=== PATIENT | female | born 1930 | race Caucasian/White ===

== ENCOUNTER 2017-02-05 18:17 | Inpatient (IN) | payer OTHER, MEDICARE ==
[~2017-02-05] VITALS: Ht 154.9 cm; Wt 73.8 kg
[2017-02-05 18:19] VITALS: BP 202/85; PULSE 71; RESP 16; TEMP 98.1; O2SAT 98
--- NOTE | 2017-02-05 18:52 | PD ---
HPI Chief Complaint: Neuro Symptoms/ Deficits Time Seen by Provider: 18:39 Travel History International Travel<30 days: No Contact w/Intl Traveler<30days: No Traveled to known affect area: No History of Present Illness HPI 86-year-old female with PMH of hypertension presents to the ED for evaluation of 30 minute episode of right hand weakness approximate 5 PM last night. She states that she was otherwise feeling normally and can identify no other deficit. She states that the episode lasted approximately 30 minutes. She states that she has a little pins and needles feeling in the right hand now but the strength has returned. She was alone when the incident occurred. She denies recent history of fevers, chills, headaches, dizziness, chest pain, palpitations, abdominal pain, shortness of breath, dysuria. She is a former smoker since age 18, quit 5+ years ago. She is followed by Dr. Hugo Pelletier. [facility] Past Medical History Diabetes: Yes Patient Takes Glucophage: Yes GERD: Yes Hypertension: Yes Tetanus Vaccination: > 5 Years Influenza Vaccination: Yes ?: Not Menopausal: Yes Past Surgical History Appendectomy: Yes Social History Alcohol Use: No Tobacco Use: No Substance Use: No Allergies-Medications (Allergen,Severity, Reaction): Coded Allergies: No Known Allergies (Unverified , 02/05/17) Reported Meds & Prescriptions Reported Meds & Active Scripts Active Reported Meloxicam 7.5 Mg Tab 7.5 Mg PO DAILY Tramadol (Tramadol HCl) 50 Mg Tab 50 Mg PO Q12HR PRN Levothyroxine (Levothyroxine Sodium) 50 Mcg Tab 50 Mcg PO DAILY Pravastatin 10 Mg Tab 10 Mg PO DAILY Losartan (Losartan Potassium) 25 Mg Tab 25 Mg PO DAILY Metformin (Metformin HCl) 500 Mg Tab 500 Mg PO DAILY With a meal Lovastatin 10 Mg Tab 10 Mg PO DAILY Ditropan (Oxybutynin Chloride) 5 Mg Tab 5 Mg PO BID Diltiazem ER 12 HR (Diltiazem HCl) 90 Mg Caper 90 Mg PO DAILY Omeprazole 20 Mg Tab 20 Mg PO DAILY Review of Systems Except as stated in HPI: all other systems reviewed are Neg Physical Exam Narrative GENERAL: Well-nourished, well-developed cheerful white female in no acute distress. SKIN: Focused skin assessment warm/dry. Hirsute. Multiple nevi noted HEAD: Normocephalic. Atraumatic. EYES: No scleral icterus. No injection or drainage. PERRLA. EOMI. NECK: Supple, trachea midline. No JVD or lymphadenopathy. CARDIOVASCULAR: Regular rate and rhythm without murmurs, gallops, or rubs. RESPIRATORY: Breath sounds clear and equal bilaterally. No accessory muscle use. GASTROINTESTINAL: Abdomen soft, non-tender, nondistended. Active bowel sounds. MUSCULOSKELETAL: No cyanosis, or edema. NEUROLOGICAL: Awake and alert. Cranial nerves II through XII intact. Motor and sensory grossly within normal limits. Five out of 5 muscle strength in all muscle groups. No pronator drift. 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 Normal speech. BACK: Nontender without obvious deformity. No CVA tenderness. Data Data Last Documented VS Vital Signs Date Time Temp Pulse Resp B/P (MAP) Pulse Ox O2 Delivery O2 Flow Rate FiO2 02/05/17 21:15 81 18 159/77 (104) 95 Room Air 02/05/17 18:19 98.1 Orders Orders Electrocardiogram (02/05/17 18:47) Prothrombin Time / Inr (Pt) (02/05/17 18:47) Act Partial Throm Time (Ptt) (02/05/17 18:47) Complete Blood Count With Diff (02/05/17 18:47) Comprehensive Metabolic Panel (02/05/17 18:47) Creatine Kinase (Cpk) (02/05/17 18:47) Troponin I (02/05/17 18:47) Urinalysis - C+S If Indicated (02/05/17 18:47) Ct Brain W/O Iv Contrast(Rout) (02/05/17 18:47) Chest, Single Ap (02/05/17 18:47) Ecg Monitoring (02/05/17 18:47) Iv Access Insert/Monitor (02/05/17 18:47) Oximetry (02/05/17 18:47) Sodium Chloride 0.9% Flush (Ns Flush) (02/05/17 19:00) Electrocardiogram (02/05/17 ) Labs Laboratory Tests Test 02/05/17 18:40 02/05/17 19:58 White Blood Count 9.3 TH/MM3 Red Blood Count 5.10 MIL/MM3 Hemoglobin 14.6 GM/DL Hematocrit 43.7 % Mean Corpuscular Volume 85.6 FL Mean Corpuscular Hemoglobin 28.7 PG Mean Corpuscular Hemoglobin Concent 33.5 % Red Cell Distribution Width 13.9 % Platelet Count 222 TH/MM3 Mean Platelet Volume 8.3 FL Neutrophils (%) (Auto) 57.7 % Lymphocytes (%) (Auto) 31.7 % Monocytes (%) (Auto) 6.6 % Eosinophils (%) (Auto) 3.1 % Basophils (%) (Auto) 0.9 % Neutrophils # (Auto) 5.4 TH/MM3 Lymphocytes # (Auto) 2.9 TH/MM3 Monocytes # (Auto) 0.6 TH/MM3 Eosinophils # (Auto) 0.3 TH/MM3 Basophils # (Auto) 0.1 TH/MM3 CBC Comment DIFF FINAL Differential Comment Prothrombin Time 10.1 SEC Prothromb Time International Ratio 0.9 RATIO Activated Partial Thromboplast Time 24.6 SEC Blood Urea Nitrogen 24 MG/DL Creatinine 1.30 MG/DL Random Glucose 114 MG/DL Total Protein 7.5 GM/DL Albumin 3.6 GM/DL Calcium Level 9.0 MG/DL Alkaline Phosphatase 59 U/L Aspartate Amino Transf (AST/SGOT) 20 U/L Alanine Aminotransferase (ALT/SGPT) 20 U/L Total Bilirubin 0.5 MG/DL Sodium Level 137 MEQ/L Potassium Level 4.4 MEQ/L Chloride Level 103 MEQ/L Carbon Dioxide Level 25.2 MEQ/L Anion Gap 9 MEQ/L Estimat Glomerular Filtration Rate 39 ML/MIN Total Creatine Kinase 119 U/L Troponin I 0.05 NG/ML MDM Medical Decision Making Medical Screen Exam Complete: Yes Emergency Medical Condition: Yes Differential Diagnosis TIA versus CVA versus electrolyte abnormality versus UTI versus other Narrative Course 86-year-old female with PMH of hypertension presents to the ED for evaluation of 30 minute episode of right hand weakness approximate 5 PM last night. She states that she was otherwise feeling normally and can identify no other deficit. She endorses pins and needles feeling in the right hand now but the strength has returned. She was alone when the incident occurred. She is followed by Dr. Hugo Pelletier. Vitals reviewed. BP 200/76 on presentation. Physical exam reveals a pleasant white female in no acute distress. No focal neurologic deficits noted. No pronator drift noted. Equal strength in the bilateral upper extremities. Exam is otherwise unremarkable. The patient states that she took her blood pressure medications this morning. EKG: Rate 70, sinus rhythm. MD interval 153, QRS 98, QTC 419. Left axis deviation. No acute ST changes. Reviewed by Dr. Fitch. CXR: No acute disease per radiology read. Troponin: Negative 1 CT brain: No acute findings. Old lacunar infarcts per radiology read. No acute abnormalities of the CBC or coags. BUN 24, creatinine 1.30 UA pending On recheck BP 189/72. I discussed the results of the workup with the patient. I suspect she's had a TIA and will need a workup. She is agreeable to admission. I spoke with Dr. Hollingsworth who agrees to accept the patient to the medicine service. Please see medicine notes for disposition. Jamia Ruiz Feb 05, 2017 18:52
[2017-02-05 19:00] VITALS: BP 200/76; PULSE 70; RESP 18; O2SAT 93
[2017-02-05] MEDS ORDERED: SODIUM CHLORIDE 0.9% FLUSH 10 ML FLUSH IVF PRN (19:00)
[2017-02-05 19:06] LABS: AUTOMATED NEUTROPHIL # 5.4 TH/MM3 (1.8-7.7); BASOPHIL # 0.1 TH/MM3 (0-0.2); BASOPHIL % 0.9 % (0.0-2.0); EOSINOPHIL # 0.3 TH/MM3 (0-0.4); EOSINOPHIL % 3.1 % (0.0-4.0); HEMATOCRIT 43.7 % (35.0-46.0); HEMO FLAGS DIFF FINAL; LYMPH % 31.7 % (9.0-44.0); LYMPHOCYTE # 2.9 TH/MM3 (1.0-4.8); MEAN CELL VOLUME 85.6 FL (80.0-100.0); MEAN CORPUSCULAR HEMOGLOBIN 28.7 PG (27.0-34.0); MEAN CORPUSCULAR HGB CONC 33.5 % (32.0-36.0); MONO % 6.6 % (0.0-8.0); NEUT % 57.7 % (16.0-70.0); PLATELET COUNT 222 TH/MM3 (150-450); RED CELL DISTRIBUTION WIDTH 13.9 % (11.6-17.2); WHITE BLOOD COUNT 9.3 TH/MM3 (4.0-11.0)
[2017-02-05] MEDS ORDERED: OMEP20TA93 PO (19:07)
[2017-02-05] MEDS ORDERED: LEVO50TA4 PO (19:07)
[2017-02-05] MEDS ORDERED: MELO7.5T27 PO (19:07)
[2017-02-05] MEDS ORDERED: LOSA25TA PO (19:07)
[2017-02-05] MEDS ORDERED: LOVA10TA PO (19:07)
[2017-02-05] MEDS ORDERED: PRAV10TA PO (19:07)
[2017-02-05] MEDS ORDERED: DILT90CA PO (19:07)
[2017-02-05] MEDS ORDERED: OXYB5TAB8 PO (19:07)
[2017-02-05] MEDS ORDERED: TRAM50TA PO (19:07)
[2017-02-05] MEDS ORDERED: METF500T PO (19:07)
[2017-02-05 19:08] VITALS: RESP 20; O2SAT 96
[2017-02-05 19:26] LABS: APTT (PATIENT) 24.6 SEC (24.3-30.1); INTERNATIONAL NORMALIZED RATIO 0.9 RATIO; PROTHROMBIN TIME - PATIENT 10.1 SEC (9.8-11.6)
--- NOTE | 2017-02-05 19:27 | RADRPT ---
EXAM DATE/TIME: 02/05/2017 18:57 [facility] COMPARISON: No previous studies available for comparison. INDICATIONS : Syncope. MEDICAL HISTORY : Hypertension. Gastroesophageal reflux disease. Diabetes mellitus type II. SURGICAL HISTORY : Appendectomy. ENCOUNTER: Initial ACUITY: 3 days PAIN SCORE: 0/10 LOCATION: Bilateral chest FINDINGS: A single view of the chest demonstrates the lungs to be symmetrically aerated without evidence of mas s, infiltrate or effusion. No evidence of pneumothorax. The cardiomediastinal contours are unremark able. Osseous structures are intact. CONCLUSION: The lungs are clear. Cornelio Messer MD on February 05, 2017 at 19:25 Board Certified Radiologist. This report was verified electronically.
[2017-02-05 19:30] VITALS: BP 195/81; PULSE 70; RESP 19; O2SAT 95
[2017-02-05 19:36] LABS: ALT (GPT) 20 U/L (10-53)
--- NOTE | 2017-02-05 19:38 | RADRPT ---
EXAM DATE/TIME: 02/05/2017 19:11 [facility] COMPARISON: No previous studies available for comparison. INDICATIONS : Altered mental status. RADIATION DOSE: 45.83 CTDIvol (mGy) MEDICAL HISTORY : Hypertension. Diabetes. SURGICAL HISTORY : None. ENCOUNTER: Initial ACUITY: 1 day PAIN SCALE: 0/10 LOCATION: cranial TECHNIQUE: Multiple contiguous axial images were obtained of the head. Using automated exposure control and adj ustment of the mA and/or kV according to patient size, radiation dose was kept as low as reasonably a chievable to obtain optimal diagnostic quality images. DICOM format image data is available electro nically for review and comparison. FINDINGS: CEREBRUM: Small hygromatous fluid collections in the supratentorial brain bilaterally. Lacunar infarct in the left thalamus and left putamen. There is otherwise good powell-white matter differentiation. No evide nce of mass, midline shift, or acute hemorrhage. The ventricles are normal in size. POSTERIOR FOSSA: The cerebellum and brainstem are intact. The 4th ventricle is midline. The cerebellopontine angle i s unremarkable. EXTRACRANIAL: The visualized portion of the orbits is intact. SKULL: The calvaria is intact. No evidence of skull fracture. CONCLUSION: 1. No acute findings. 2. 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 Cornelio Messer MD on February 05, 2017 at 19:35 Board Certified Radiologist. This report was verified electronically.
[2017-02-05 21:15] VITALS: BP 159/77; PULSE 81; RESP 18; O2SAT 95
[2017-02-05 21:30] VITALS: PULSE 69
[2017-02-05 21:35] LABS: ALKALINE PHOSPHATASE 59 U/L (45-117); ANION GAP 9 MEQ/L (5-15); AST (GOT) 20 U/L (15-37); BICARBONATE 25.2 MEQ/L (21.0-32.0); BLOOD UREA NITROGEN 24 MG/DL (7-18); CHLORIDE 103 MEQ/L (98-107); CREATINE KINASE 119 U/L (26-192); GLOMERULAR FILTRATION RATE 39 ML/MIN (>89); POTASSIUM 4.4 MEQ/L (3.5-5.1); SODIUM (NA) 137 MEQ/L (136-145); TOTAL BILIRUBIN ADULT 0.5 MG/DL (0.2-1.0)
[2017-02-05 23:07] LABS: BACTERIA, URINE FEW /hpf; BLOOD, URINE NEG (NEG); GLUCOSE,URINE NEG (NEG); KETONE, URINE NEG (NEG); MUCUS URINE FEW /lpf (OCC); NITRITE,URINE POS (NEG); PH, URINE 5.5 (5.0-8.5); SQUAMOUS EPITHELIAL CELL URINE <1 /hpf (0-5); URINE COLOR LIGHT-YELLOW (YELLW/STRAW)
[2017-02-05 23:08] LABS: COMMENT (UR) CATH-CULTURE IND; CULTURE IF INDICATED CATH CULTURE IND
[2017-02-05] MEDS ORDERED: GLUCAGON 1 MG/ML VIAL OTHER PRN ×2 (23:45)
[2017-02-05] MEDS ORDERED: DEXTROSE 50% IN WATER 50 ML VIAL(D50) IV PUSH PRN (23:45)
[2017-02-05] MEDS ORDERED: SODIUM CHLORIDE 0.9% FLUSH 5 ML FLUSH IV FLUSH PRN (23:45)
[2017-02-06] VITALS (8 sets, daily range): BP systolic 113–204; BP diastolic 67–92; PULSE 57–84; RESP 16–20; TEMP 97.5–98.8; O2SAT 94–100
[2017-02-06] MEDS ORDERED: hydrALAZINE HCL 10 MG TAB PO PRN
--- NOTE | 2017-02-06 | HHI.HP ---
[facility] [place] [facility] Hugo Pelletier MD Admission Diagnosis TIA Diagnoses: Travel History International Travel<30 Days: No Contact w/Intl Traveler <30 Da: No Traveled to Known Affected Are: No History of Present Illness 86-year-old female with a past medical history significant for hypertension and type 2 diabetes mellitus presents to the emergency department after having an episode of numbness and inability to use her right hand. The patient is a poor historian, is unclear on her medical problems and the medication she takes. She states that last night she went to reach for the remote she was unable to pick it up because she could not feel her hand or "make it work right." She states that she had symptoms again when she was eating dinner and she could not hold her fork. The patient's symptoms were resolved by the time she woke up this morning. She denies any changes in sensation. 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 Review of Systems Denies fever or chills Denies blurry vision, otorrhea, rhinorrhea Denies sore throat and cough No chest pain, palpitations, shortness of breath No abdominal pain Denies constipation/diarrhea/nausea/vomiting Denies muscle pain/weakness No rashes Past Family Social History Past Medical History Type 2 diabetes mellitus Hypertension Patient states she may have other medical problems but does not know what they are Medical records reviewed did not elicit any past medical history Past Surgical History Appendectomy Reported Medications Reported Meds & Active Scripts Active Reported Meloxicam 7.5 Mg Tab 7.5 Mg PO DAILY Tramadol (Tramadol HCl) 50 Mg Tab 50 Mg PO Q12HR PRN Levothyroxine (Levothyroxine Sodium) 50 Mcg Tab 50 Mcg PO DAILY Pravastatin 10 Mg Tab 10 Mg PO DAILY Losartan (Losartan Potassium) 25 Mg Tab 25 Mg PO DAILY Metformin (Metformin HCl) 500 Mg Tab 500 Mg PO DAILY With a meal Lovastatin 10 Mg Tab 10 Mg PO DAILY Ditropan (Oxybutynin Chloride) 5 Mg Tab 5 Mg PO BID Diltiazem ER 12 HR (Diltiazem HCl) 90 Mg Caper 90 Mg PO DAILY Omeprazole 20 Mg Tab 20 Mg PO DAILY Allergies: Coded Allergies: No Known Allergies (Unverified , 02/05/17) Family History Mom with pancreatic cancer. Dad with heart disease. Social History Quit smoking 20 years ago, has a [id number] history of tobacco. Denies alcohol, illicit drugs. Physical Exam Vital Signs Vital Signs Date Time Temp Pulse Resp B/P (MAP) Pulse Ox O2 Delivery O2 Flow Rate FiO2 02/05/17 21:15 81 18 159/77 (104) 95 Room Air 02/05/17 19:30 70 19 195/81 (119) 95 Room Air 02/05/17 19:08 20 96 Room Air 02/05/17 19:00 70 18 200/76 (117) 93 Room Air 02/05/17 18:31 81 18 95 Room Air 02/05/17 18:19 98.1 71 16 202/85 (124) 98 Room Air Physical Exam GENERAL: Elderly female sitting up in bed SKIN: No rashes, ecchymoses or lesions. Cool and dry. HEAD: Atraumatic. Normocephalic. No temporal or scalp tenderness. EYES: Pupils equal round and reactive. Extraocular motions intact. No scleral icterus. No injection or drainage. ENT: Nose without bleeding, purulent drainage or septal hematoma. Throat without erythema, tonsillar hypertrophy or exudate. Uvula midline. Airway patent. NECK: Trachea midline. No JVD or lymphadenopathy. Supple, nontender, no meningeal signs. CARDIOVASCULAR: Regular rate and rhythm without murmurs, gallops, or rubs. RESPIRATORY: Clear to auscultation. Breath sounds equal bilaterally. No wheezes , rales, or rhonchi. GASTROINTESTINAL: Abdomen soft, non-tender, nondistended. No hepato-splenomegaly , or palpable masses. No guarding. MUSCULOSKELETAL: Extremities without clubbing, cyanosis, or edema. No joint tenderness, effusion, or edema noted. No calf tenderness. Negative Homans sign bilaterally. NEUROLOGICAL: Awake and alert. Cranial nerves II through XII intact. Five out of 5 muscle strength in all muscle groups. Normal speech. No lateralizing signs. Laboratory Laboratory Tests Test 02/05/17 18:40 02/05/17 19:58 02/05/17 22:45 White Blood Count 9.3 Red Blood Count 5.10 Hemoglobin 14.6 Hematocrit 43.7 Mean Corpuscular Volume 85.6 Mean Corpuscular Hemoglobin 28.7 Mean Corpuscular Hemoglobin Concent 33.5 Red Cell Distribution Width 13.9 Platelet Count 222 Mean Platelet Volume 8.3 Neutrophils (%) (Auto) 57.7 Lymphocytes (%) (Auto) 31.7 Monocytes (%) (Auto) 6.6 Eosinophils (%) (Auto) 3.1 Basophils (%) (Auto) 0.9 Neutrophils # (Auto) 5.4 Lymphocytes # (Auto) 2.9 Monocytes # (Auto) 0.6 Eosinophils # (Auto) 0.3 Basophils # (Auto) 0.1 CBC Comment DIFF FINAL Differential Comment Prothrombin Time 10.1 Prothromb Time International Ratio 0.9 Activated Partial Thromboplast Time 24.6 Blood Urea Nitrogen 24 Creatinine 1.30 Random Glucose 114 Total Protein 7.5 Albumin 3.6 Calcium Level 9.0 Alkaline Phosphatase 59 Aspartate Amino Transf (AST/SGOT) 20 Alanine Aminotransferase (ALT/SGPT) 20 Total Bilirubin 0.5 Sodium Level 137 Potassium Level 4.4 Chloride Level 103 Carbon Dioxide Level 25.2 Anion Gap 9 Estimat Glomerular Filtration Rate 39 Total Creatine Kinase 119 Troponin I 0.05 Urine Color LIGHT-YELLOW Urine Turbidity CLEAR Urine pH 5.5 Urine Specific [place] 1.008 Urine Protein NEG Urine Glucose (UA) NEG Urine Ketones NEG Urine Occult Blood NEG Urine Nitrite POS Urine Bilirubin NEG Urine Urobilinogen LESS THAN 2.0 Urine Leukocyte Esterase TRACE Urine RBC 1 Urine WBC 1 Urine Squamous Epithelial Cells <1 Urine Bacteria FEW Urine Mucus FEW Microscopic Urinalysis Comment CATH-CULTURE IND Date/Time Source Procedure Growth Status 02/05/17 22:45 Urine Catheterized Urine Urine Culture Pending Received Result Diagram: 02/05/17183902/05/171957 Caprini VTE Risk Assessment Caprini VTE Risk Assessment: Mod/High Risk (score >= 2) Caprini Risk Assessment Model Point Value = 1 Point Value = 2 Point Value = 3 Point Value = 5 Age 41-60 Minor surgery BMI > 25 kg/m2 Swollen legs Varicose veins or History of unexplained or recurrent spontaneous Oral contraceptives or hormone replacement Sepsis (< 1 month) Serious lung disease, including pneumonia (< 1 month) Abnormal pulmonary function Acute myocardial infarction Congestive heart failure (< 1 month) History of inflammatory bowel disease Medical patient at bed rest Age 61-74 Arthroscopic surgery Major open surgery (> 45 min) Laparoscopic surgery (> 45 min) Malignancy Confined to bed (> 72 hours) Immobilizing plaster cast Central venous access Age >= 75 History of VTE Family history of VTE Factor V Leiden Prothrombin [id number] Lupus anticoagulant Anticardiolipin antibodies Elevated serum homocysteine Heparin-induced thrombocytopenia Other congenital or acquired thrombophilia Stroke (< 1 month) Elective arthroplasty Hip, pelvis, or leg fracture Acute spinal cord injury (< 1 month) Prophylaxis Regimen Total Risk Factor Score Risk Level Prophylaxis Regimen 0-1 Low Early ambulation 2 Moderate Order ONE of the following: *Sequential Compression Device (SCD) *Heparin 5000 units SQ BID 3-4 Higher Order ONE of the following medications: *Heparin 5000 units SQ TID *Enoxaparin/Lovenox 40 mg SQ daily (WT < 150 kg, CrCl > 30 mL/min) *Enoxaparin/Lovenox 30 mg SQ daily (WT < 150 kg, CrCl > 10-29 mL/min) *Enoxaparin/Lovenox 30 mg SQ BID (WT < 150 kg, CrCl > 30 mL/min) AND/OR *Sequential Compression Device (SCD) 5 or more Highest Order ONE of the following medications: *Heparin 5000 units SQ TID (Preferred with Epidurals) *Enoxaparin/Lovenox 40 mg SQ daily (WT < 150 kg, CrCl > 30 mL/min) *Enoxaparin/Lovenox 30 mg SQ daily (WT < 150 kg, CrCl > 10-29 mL/min) *Enoxaparin/Lovenox 30 mg SQ BID (WT < 150 kg, CrCl > 30 mL/min) AND *Sequential Compression Device (SCD) Assessment and Plan Assessment and Plan 86-year-old female with a past medical history significant for type 2 diabetes mellitus and hypertension presents 1 day history of right hand weakness/ numbness. 1. TIA Symptoms resolved at this time Neurology consulted, appreciate recommendations Workup pending including MRI/MRA/carotid ultrasound/echo Lipid profile pending, A1C pending EKG showed normal sinus rhythm without ST elevations or depressions, reviewed by me 2. Hypertension Continue home medications Patient hypertensive in the ED, monitor and adjust medications. Hydralazine when necessary 3. Diabetes mellitus Holding home metformin SSI 4. Hypothyroidism TSH pending Continue home Synthroid FEN heart healthy diet Electrolytes: Replete when necessary Heparin Physician Certification 2 Midnight Certification Type: Admission for Inpatient Services Order for Inpatient Services The services are ordered in accordance with Medicare regulations or non- Medicare payer requirements, as applicable. In the case of services not specified as inpatient-only, they are appropriately provided as inpatient services in accordance with the 2-midnight benchmark. Estimated LOS (days): 2 2 days is the estimated time the patient will need to remain in the hospital, assuming treatment plan goals are met and no additional complications. Post-Hospital Plan: Not yet determined Carolynn Hollingsworth MD Feb 06, 2017 00:00
[2017-02-06] MEDS: HEPARIN SODIUM - SQ 10,000 UNITS/ML VIAL SQ SCH ×4 (00:07→23:15)
[2017-02-06] MEDS ORDERED: ENALAPRILAT 1.25 MG/ML VIAL IV PUSH ONE (02:30)
[2017-02-06] MEDS: LEVOTHYROXINE SODIUM 50 MCG TAB PO SCH (06:06)
[2017-02-06 07:54] LABS: AUTOMATED NEUTROPHIL # 5.5 TH/MM3 (1.8-7.7); BASOPHIL # 0.1 TH/MM3 (0-0.2); BASOPHIL % 0.6 % (0.0-2.0); EOSINOPHIL # 0.2 TH/MM3 (0-0.4); EOSINOPHIL % 2.4 % (0.0-4.0); HEMATOCRIT 41.9 % (35.0-46.0); HEMO FLAGS DIFF FINAL; LYMPH % 27.6 % (9.0-44.0); LYMPHOCYTE # 2.4 TH/MM3 (1.0-4.8); MEAN CORPUSCULAR HEMOGLOBIN 29.3 PG (27.0-34.0); MONO % 7.2 % (0.0-8.0); NEUT % 62.2 % (16.0-70.0); PLATELET COUNT 213 TH/MM3 (150-450); RED BLOOD COUNT 4.88 MIL/MM3 (4.00-5.30); RED CELL DISTRIBUTION WIDTH 14.3 % (11.6-17.2); WHITE BLOOD COUNT 8.9 TH/MM3 (4.0-11.0)
[2017-02-06] MEDS: INSULIN ASPART SUPPLEMENTAL SCALE SQ SCH ×4 (08:00→21:00)
[2017-02-06] MEDS ORDERED: INSULIN ASPART SUPPLEMENTAL SCALE SQ SCH (08:00)
[2017-02-06 08:23] LABS: ANION GAP 7 MEQ/L (5-15); BICARBONATE 28.3 MEQ/L (21.0-32.0); BLOOD UREA NITROGEN 19 MG/DL (7-18); CHLORIDE 104 MEQ/L (98-107); GLOMERULAR FILTRATION RATE 50 ML/MIN (>89); POTASSIUM 3.8 MEQ/L (3.5-5.1); SODIUM (NA) 139 MEQ/L (136-145)
--- NOTE | 2017-02-06 08:25 | PD.CONS ---
History of Present Illness Service Neurology Consult Requested By medical Reason for Consult tia Primary Care Physician Hugo Pelletier MD History of Present Illness 86-year-old female admitted for possible tia. sudden onset of rt handed weakness while eating dinner. ct brain old left subcortical infarcts. bp 202/85 states symptoms have resolved. last 5-10 minutes. no face/leg involvement. no vision loss. takes aspirin 81mg qdaily. ambulates with walker due to left hip arthritis. 2003 seen at the [facility] for symptoms of left arm and lip tingling. Review of Systems as above and admit hp Past Family Social History Past Medical History Type 2 diabetes mellitus Hypertension Past Surgical History Appendectomy Reported Medications Reported Meds & Active Scripts Active Reported Meloxicam 7.5 Mg Tab 7.5 Mg PO DAILY Tramadol (Tramadol HCl) 50 Mg Tab 50 Mg PO Q12HR PRN Levothyroxine (Levothyroxine Sodium) 50 Mcg Tab 50 Mcg PO DAILY Pravastatin 10 Mg Tab 10 Mg PO DAILY Losartan (Losartan Potassium) 25 Mg Tab 25 Mg PO DAILY Metformin (Metformin HCl) 500 Mg Tab 500 Mg PO DAILY With a meal Lovastatin 10 Mg Tab 10 Mg PO DAILY Ditropan (Oxybutynin Chloride) 5 Mg Tab 5 Mg PO BID Diltiazem ER 12 HR (Diltiazem HCl) 90 Mg Caper 90 Mg PO DAILY Omeprazole 20 Mg Tab 20 Mg PO DAILY Allergies: Coded Allergies: No Known Allergies (Unverified , 02/05/17) Family History M-pancreatic cancer. D- heart disease. Social History Quit smoking. Denies alcohol, illicit drugs. Review of Systems All other ROS: ROS reviewed as documented in chart Past Family Social History Allergies: Coded Allergies: No Known Allergies (Unverified , 02/05/17) Active Ordered Medications Current Medications Medications (Trade) Dose Ordered Sig/Chloé Route Start Time Stop Time Status Last Admin (NS Flush) 2 ml BID IV FLUSH 02/06/17 09:00 (NS Flush) 2 ml UNSCH PRN IV FLUSH 02/05/17 23:45 (Heparin Inj) 5,000 units Q8H SQ 02/06/17 00:00 02/06/17 00:07 (D50w (Vial) Inj) 50 ml UNSCH PRN IV PUSH 02/05/17 23:45 (Glucagon Inj) 1 mg UNSCH PRN OTHER 02/05/17 23:45 (NovoLOG SUPPLEMENTAL SCALE) 1 ACHS SLIDING SCALE SQ 02/06/17 08:00 (Synthroid) 50 mcg DAILY@0600 PO 02/06/17 06:00 02/06/17 06:06 (Cozaar) 25 mg DAILY PO 02/06/17 09:00 (Ditropan) 5 mg BID PO 02/06/17 09:00 (Pravachol) 10 mg DAILY PO 02/06/17 09:00 Patient Own Medication PT OWN MED: Diltia... DAILY PO 02/06/17 09:00 Future Hold (Protonix) 20 mg DAILY PO 02/06/17 09:00 (Apresoline) 10 mg Q6HR PRN PO 02/06/17 00:00 02/06/17 00:08 (Flu (Quadrivalent) Vaccine Inj) 0.5 ml ONCE ONCE IM 02/07/17 10:00 02/07/17 10:01 Exam I&O / VS Vital Signs Date Time Temp Pulse Resp B/P (MAP) Pulse Ox O2 Delivery O2 Flow Rate FiO2 02/06/17 01:11 02/06/17 01:00 97.5 81 20 204/92 (129) 96 02/06/17 00:08 69 16 189/91 (123) 97 Room Air 02/05/17 21:30 69 02/05/17 21:15 81 18 159/77 (104) 95 Room Air 02/05/17 19:30 70 19 195/81 (119) 95 Room Air 02/05/17 19:08 20 96 Room Air 02/05/17 19:00 70 18 200/76 (117) 93 Room Air 02/05/17 18:31 81 18 95 Room Air 02/05/17 18:19 98.1 71 16 202/85 (124) 98 Room Air General: Alert and Oriented, No acute distress Eye: EOMI Respiratory: Non-labored respirations Cardiology: No murmur Neurologic: Alert, Oriented, Normal sensory, Normal motor, CN II-XII intact, Normal DTR's Psychiatric: Cooperative, Appropriate mood & affect Exam Comments ox 3, no aphasia, pleasant, follows, eomi, ou 3-2mm, face sym, no drift, ffm sym , antalgic gait favoring left hip Review/Management Diagnosis/Plan: (1) TIA (transient ischemic attack) ICD Codes: G45.9 - Transient cerebral ischemic attack, unspecified Status: Acute Plan: probable pure motoe lacunar tia chronic htn, small vessel dz recs add plavix f/u mri/mra/carotid/echo tele long-term bp control f/u lipid panel p.t f/u after above d/w medical d/c planning in am (2) HTN (hypertension) ICD Codes: I10 - Essential (primary) hypertension Status: Chronic Plan: permissive htn keep <200/100 for next few days then bring to normotensive range (3) Gait, antalgic ICD Codes: R26.89 - Other abnormalities of gait and mobility Problem Qualifiers (1) TIA (transient ischemic attack): Qualified Codes: G45.1 - Carotid artery syndrome (hemispheric) Lc Duke MD Feb 06, 2017 08:25
[2017-02-06 08:27] LABS: HDL CHOLESTEROL 89.2 MG/DL (40.0-60.0); LDL CHOLESTEROL 52 MG/DL (0-99)
[2017-02-06] MEDS ORDERED: HEPARIN SODIUM - SQ 10,000 UNITS/ML VIAL SQ SCH (08:30)
[2017-02-06] MEDS: SODIUM CHLORIDE 0.9% FLUSH 5 ML FLUSH IV FLUSH SCH ×2 (09:00→21:00)
[2017-02-06] MEDS ORDERED: DILTIAZEM PO SCH (09:00)
[2017-02-06] MEDS: OXYBUTYNIN CHLORIDE 5 MG TAB PO SCH ×2 (09:13→23:10)
[2017-02-06] MEDS: LOSARTAN 25 MG TAB PO SCH (09:13)
[2017-02-06] MEDS: PRAVASTATIN SOD 10 MG TAB PO SCH (09:13)
[2017-02-06] MEDS: PANTOPRAZOLE SOD 20 MG DELAYED RELEASE TAB PO SCH (09:13)
[2017-02-06] MEDS: ASPIRIN EC 325 MG TABEC PO SCH (09:17)
--- NOTE | 2017-02-06 09:23 | RADRPT ---
EXAM DATE/TIME: 02/06/2017 08:04 [facility] COMPARISON: No previous studies available for comparison. INDICATIONS : Cerebrovascular accident. MEDICAL HISTORY : Hypertension. Gastroesophageal reflux disease. Diabetes. SURGICAL HISTORY : Appendectomy. ENCOUNTER: Initial ACUITY: 2 days PAIN SCORE: 0/10 LOCATION: Bilateral neck PEAK SYSTOLIC VELOCITIES (cm/sec): ICA/CCA RATIO: Right: 1.0 Left: 1.4 ICA: Right: 81 Left: 90 CCA: Right: 80 Left: 64 ECA: Right: 75 Left: 55 VERTEBRAL: Right: 42 antegrade Left: 29 antegrade Elevated flow velocities and ICA/CCA ratios have been found to correlate with increased degrees of vessel stenosis, calculated as percentage of diameter relative to a normal segment of distal ICA/CCA FINDINGS: RIGHT CAROTID: [id number] plaque in the carotid bulb extending to the internal carotid origin. Resultant mild, less than 50%, stenosis by powell scale criteria. The waveforms are within normal limits. LEFT CAROTID: [id number]-ps-[id number] plaque in the carotid bulb extending to the internal carotid origin. Resultant mild, less than 50%, stenosis by powell scale criteria. The waveforms are within normal limits. VERTEBRAL ARTERIES: Antegrade flow is seen in both vertebral arteries. MISCELLANEOUS: None. CONCLUSION: 1. [id number] bilateral carotid plaque with resultant mild, less than 50%, stenosis by powell sca le criteria. 2. Antegrade vertebral artery flow bilaterally. Kulwant Allen MD on February 06, 2017 at 9:18 Board Certified Radiologist. This report was verified electronically.
--- NOTE | 2017-02-06 09:43 | EKG ---
Date Performed: 02/05/2017 Time Performed: 19:21:07 PTAGE: 86 years EKG: Sinus rhythm LOW QRS VOLTAGE IN PRECORDIAL LEADS POSSIBLE RIGHT VENTRICULAR CONDUCTION DELAY LEFT ANTERIOR FASCIC ULAR BLOCK VOLTAGE CRITERIA FOR LVH ANTERIOR MYOCARDIAL INFARCTION ABNORMAL ECG PREVIOUS TRACING : 12/23/2003 18.29 DOCTOR: Abhishek Jorgensen Interpretating Date/Time 02/06/2017 09:41:13
--- NOTE | 2017-02-06 09:58 | HHI.PR ---
Subjective Remarks 86 years old right handed female right upper extremity numbness and weakness lasted for 10 mins no associated headaches, nausea or vomiting Objective Vitals Vital Signs Date Time Temp Pulse Resp B/P (MAP) Pulse Ox O2 Delivery O2 Flow Rate FiO2 02/06/17 09:36 97.7 68 18 198/89 (125) 96 02/06/17 04:00 98.8 57 18 113/67 (82) 100 02/06/17 04:00 97.8 68 18 133/67 (89) 97 02/06/17 01:11 02/06/17 01:00 97.5 81 20 204/92 (129) 96 02/06/17 00:08 69 16 189/91 (123) 97 Room Air 02/05/17 21:30 69 02/05/17 21:15 81 18 159/77 (104) 95 Room Air 02/05/17 19:30 70 19 195/81 (119) 95 Room Air 02/05/17 19:08 20 96 Room Air 02/05/17 19:00 70 18 200/76 (117) 93 Room Air 02/05/17 18:31 81 18 95 Room Air 02/05/17 18:19 98.1 71 16 202/85 (124) 98 Room Air Result Diagram: 02/06/17 0645 02/06/17 0645 Imaging Last Impressions Carotid Artery Ultrasound 02/06/17 0000 Signed Impressions: Service Date/Time: Monday, February 06, 2017 08:04 - CONCLUSION: 1. [id number]-[id number] bilateral carotid plaque with resultant mild, less than 50%%, stenosis by powell scale criteria. 2. Antegrade vertebral artery flow bilaterally. Kulwant Allen MD Head CT 02/05/171846 Signed Impressions: Service Date/Time: Sunday, February 05, 2017 19:11 - CONCLUSION: 1. No acute findings. 2. 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 Cornelio Messer MD Chest X-Ray 02/05/171846 Signed Impressions: Service Date/Time: Sunday, February 05, 2017 18:57 - CONCLUSION: The lungs are clear. Cornelio Messer MD Objective Remarks awake and alert, oriented x 3, speech clear anicteric no carotid bruit lungs clear regular rhyhtm abdomensoft, nontender extremities no edema Neuro exam- speech clear, a x ox 3 CN intact grossly no sensory deficits no motor deficits gait stedy A/P Assessment and Plan 86-year-old female with a past medical history significant for type 2 diabetes mellitus and hypertension presents 1 day history of right hand weakness/ numbness. 1. TIA r/o CVA- on further discussion with patient she takes ASA 81 mg po daily routinely for past 3 years continue neuro checks d/w Dr. Isaac - will add Plavix to regimen Workup pending including MRI/MRA/carotid ultrasound/echo- inprogress good Lipid profile - high HDL. continue on her statins PT consult 2. Hypertension, elevated SBPs BP control Continue continue on Cozaar 25 mg daily Add Amloidpine 5 mg daily Patient hypertensive in the ED, monitor and adjust medications. Hydralazine when necessary 3. Diabetes mellitus- states good hypoglycemic awareness A1C pending Holding home metformin SSI 4. Hypothyroidism TSH normal Continue home Synthroid 5. KARELY- pre renal- gentle hydratin ff BMP FEN heart healthy diet Electrolytes: Replete when necessary Heparin SQ for DVT prophylaxis Cuba Rosa MD Feb 06, 2017 09:58
[2017-02-06] MEDS ORDERED: SODIUM CHLOR 0.9% 1000 ML INJ 1,000 ML IV SCH (11:00)
--- NOTE | 2017-02-06 11:32 | RADRPT ---
EXAM DATE/TIME: 02/06/2017 10:51 [facility] COMPARISON: CT BRAIN W/O CONTRAST, February 05, 2017, 19:11. INDICATIONS : CVA. MEDICAL HISTORY : Hypertension. Diabetes mellitus type 2. SURGICAL HISTORY : Appendectomy. ENCOUNTER: Initial ACUITY: 2 day PAIN SCORE: 0/10 LOCATION: head TECHNIQUE: Multiplanar, multisequence MRI of the brain was performed without contrast. FINDINGS: Atrophy. There is a less than 1 cm area of cortical infarction involving the left frontal lobe. This shows elevated signal on the flair sequence and restricted diffusion. No hemorrhage appreciated. Scat tered foci of high flair signal noted within the periventricular white matter of both cerebral hemisp heres. Tiny chronic lacunar infarctions involving the left thalamus and basal ganglia. No mass. Ventr icles are normal in size. Mastoid air cells and paranasal sinuses are clear. Orbital structures are u nremarkable. CONCLUSION: 1. Tiny acute nonhemorrhagic cortical infarction involving the left frontal lobe. 2. Chronic small vessel ischemic change. 3. Atrophy. Cornelio Quijano Jr., MD on February 06, 2017 at 11:26 Board Certified Radiologist. This report was verified electronically.
[2017-02-06] MEDS: amLODIPine BESYLATE 5 MG TAB PO SCH (11:57)
[2017-02-06] MEDS: CLOPIDOGREL 75 MG TAB PO SCH (11:57)
[2017-02-06] MEDS ORDERED: GADODIAMIDE PF 287 MG/ML 20 ML VIAL (for RAD MRI) IVCONTRAST ONE (13:49)
[2017-02-06 13:54] LABS: HEMOGLOBIN A1b 1.9 %; HEMOGLOBIN Ao 84.1 %; HEMOGLOBIN LA1C 2.3 %; HEMOGLOBIN P3 5.8 %
--- NOTE | 2017-02-06 14:27 | RADRPT ---
EXAM DATE/TIME: 02/06/2017 10:51 [facility] COMPARISON: No previous studies available for comparison. INDICATIONS : CVA. MEDICAL HISTORY : Hypertension. Diabetes mellitus type 2. SURGICAL HISTORY : Appendectomy. ENCOUNTER: Initial ACUITY: 1 day PAIN SCORE: 0/10 LOCATION: head Please note a normal MRA of the brain does not entirely exclude the possibility of a small aneurysm, nor the possibility of distal intracranial vessel disease. TECHNIQUE: 3D time of flight MRA was performed. Source images, multiplanar STS MIP, and 3D volume MIP reconstru ctions were reviewed. FINDINGS: There is intracranial atherosclerotic disease involving the middle cerebral arteries bilaterally with 60-70% stenosis involving the M1 segment on the left and 50% stenosis involving the right middle cer ebral artery trifurcation. There is an 8mm aneurysm involving the right ophthalmic artery origin. The re is a origin of the posterior cerebral arteries bilaterally. There are small caliber vertebra l arteries and basilar segment secondary to the prominent origins of the posterior cerebral. CONCLUSION: 1. Intracranial atherosclerotic disease most prominent 60-70% involving the proximal left middle cere bral artery. 2. 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 3. CT angiography of the cerebral brachial arch and brain is recommended for further evaluation if cl inically indicated. Benigno Camacho MD on February 06, 2017 at 14:15 Board Certified Radiologist. This report was verified electronically.
--- NOTE | 2017-02-06 14:32 | RADRPT ---
EXAM DATE/TIME: 02/06/2017 10:51 [facility] COMPARISON: No previous studies available for comparison. INDICATIONS : Stroke. CONTRAST: 20 cc Omniscan (gadodiamide) IV MEDICAL HISTORY : Hypertension. Diabetes mellitus type 2. SURGICAL HISTORY : Appendectomy. ENCOUNTER: Initial ACUITY: 1 day PAIN SCORE: 0/10 LOCATION: neck Percent stenosis is calculated using the diameter of the stenotic region over the diameter of the nor mal distal internal carotid artery. TECHNIQUE: Bolus infused MRA of the extracranial circulation was performed using a neurovascular coil. Post pro cessing was performed including rotating subvolume maximum intensity projections of each carotid charles ry, rotating full volume maximum intensity projections of both carotid arteries, sagittal and coronal sliding thin slab reformations of each carotid artery, and left oblique sliding thin slab reformatio n through the aortic arch to include the origin of the arch branch vessels. FINDINGS: Percent stenosis is calculated using the diameter of the stenotic region over the diameter of the nor mal distal internal carotid artery. No abnormality is identified within the lung apices. There is normal origin of vessels from the arch without evidence of proximal stenosis. Vertebral arteries are hypoplastic in this patient with origins of the posterior stable arteries bilaterally. Examination of the right common carotid artery demonstrates the vessel to be widely patent. There is 20-30% stenosis at the origin of the right internal carotid artery. More distally the cervical copywriting intern al carotid artery is intact. Examination of the left common carotid artery demonstrates the vessel to be widely patent. There is 1 0-20% stenosis at the origin of the left internal carotid artery with minimal flattening in the poste rior aspect of the bulb. More distally the cervical internal carotid artery is intact. CONCLUSION: 1. No evidence of hemodynamic significant lesion. There is 20-30% on the right and 10-20% on the left . Benigno Camacho MD on February 06, 2017 at 14:26 Board Certified Radiologist. This report was verified electronically.
[2017-02-07 00:30] VITALS: BP_SYST 105; BP_SYST 163; BP_DIAS 52; BP_DIAS 73; PULSE 77; RESP 17; TEMP 98.2; O2SAT 94
[2017-02-07] MEDS: LEVOTHYROXINE SODIUM 50 MCG TAB PO SCH (05:19)
[2017-02-07 05:46] VITALS: BP 168/81; PULSE 89; RESP 17; TEMP 98; O2SAT 94
[2017-02-07 08:00] VITALS: PULSE 68
[2017-02-07] MEDS: INSULIN ASPART SUPPLEMENTAL SCALE SQ SCH (08:00)
[2017-02-07 08:03] VITALS: BP 161/85; PULSE 88; RESP 20; TEMP 98; O2SAT 96
[2017-02-07] MEDS: OXYBUTYNIN CHLORIDE 5 MG TAB PO SCH (08:42)
[2017-02-07] MEDS: PRAVASTATIN SOD 10 MG TAB PO SCH (08:42)
[2017-02-07] MEDS: amLODIPine BESYLATE 5 MG TAB PO SCH (08:42)
[2017-02-07] MEDS: ASPIRIN EC 325 MG TABEC PO SCH (08:43)
[2017-02-07] MEDS: PANTOPRAZOLE SOD 20 MG DELAYED RELEASE TAB PO SCH (08:43)
--- NOTE | 2017-02-07 08:43 | HHI.PR ---
Review/Management Diagnosis/Plan: (1) Acute ischemic left MCA stroke ICD Codes: I63.512 - Cerebral infarction due to unspecified occlusion or stenosis of left middle cerebral artery Status: Acute Plan: small left frontal cortical infarct -left mca stenosis- probable cause -?8mm opthalmic aneurysm chronic htn, small vessel dz lipids excellent recs aspirin 325mg + plavix qd home p.t./o.t bp control will repeat studies to f/u opthalmic aneurysm- currently not symptomatic d/c planning today per pt request outpatient f/u with and cardiology for event monitor (2) TIA (transient ischemic attack) ICD Codes: G45.9 - Transient cerebral ischemic attack, unspecified Status: Acute (3) HTN (hypertension) ICD Codes: I10 - Essential (primary) hypertension Status: Chronic Plan: permissive htn keep <200/100 for next few days then bring to normotensive range (4) Gait, antalgic ICD Codes: R26.89 - Other abnormalities of gait and mobility Subjective Subjective Comments No acute events reported No headache No chest pain No dyspnea Active Medications Current Medications Medications (Trade) Dose Ordered Sig/Chloé Route Start Time Stop Time Status Last Admin (NS Flush) 2 ml BID IV FLUSH 02/06/17 09:00 02/06/17 21:00 (NS Flush) 2 ml UNSCH PRN IV FLUSH 02/05/17 23:45 (Heparin Inj) 5,000 units Q8H SQ 02/06/17 00:00 02/06/17 23:15 (D50w (Vial) Inj) 50 ml UNSCH PRN IV PUSH 02/05/17 23:45 (Glucagon Inj) 1 mg UNSCH PRN OTHER 02/05/17 23:45 (NovoLOG SUPPLEMENTAL SCALE) 1 ACHS SLIDING SCALE SQ 02/06/17 08:00 (Synthroid) 50 mcg DAILY@0600 PO 02/06/17 06:00 02/07/17 05:19 (Cozaar) 25 mg DAILY PO 02/06/17 09:00 02/06/17 09:13 (Ditropan) 5 mg BID PO 02/06/17 09:00 02/06/17 23:10 (Pravachol) 10 mg DAILY PO 02/06/17 09:00 02/06/17 09:13 Patient Own Medication PT OWN MED: Diltia... DAILY PO 02/06/17 09:00 Future Hold (Protonix) 20 mg DAILY PO 02/06/17 09:00 02/06/17 09:13 (Apresoline) 10 mg Q6HR PRN PO 02/06/17 00:00 02/06/17 00:08 (Flu (Quadrivalent) Vaccine Inj) 0.5 ml ONCE ONCE IM 02/07/17 10:00 02/07/17 10:01 (Ecotrin Ec) 325 mg DAILY PO 02/06/17 09:00 02/06/17 09:17 (Plavix) 75 mg DAILY PO 02/06/17 11:00 02/06/17 11:57 (Norvasc) 5 mg DAILY PO 02/06/17 11:00 02/06/17 11:57 Allergies Allergies Coded Allergies No Known Allergies ([id number]/21/17) Review of Systems All other ROS: ROS reviewed as documented in chart Exam I&O / VS Vital Signs Date Time Temp Pulse Resp B/P (MAP) Pulse Ox O2 Delivery O2 Flow Rate FiO2 02/07/17 08:03 98.0 88 20 161/85 (110) 96 02/07/17 05:46 98.0 89 17 168/81 (110) 94 02/07/17 00:30 98.2 77 17 105/52 (69) 94 02/06/17 22:46 98.1 71 18 150/78 (102) 95 02/06/17 20:00 69 02/06/17 19:23 97.6 84 18 178/80 (112) 94 02/06/17 09:36 97.7 68 18 198/89 (125) 96 General: Alert and Oriented, No acute distress Eye: EOMI Respiratory: Non-labored respirations Cardiology: No murmur Neurologic: Alert, Oriented, Normal sensory, Normal motor, CN II-XII intact, Normal DTR's Psychiatric: Cooperative, Appropriate mood & affect Exam Comments ox 3, no aphasia, sitting up finishing breakfast, pleasant, follows, eomi, ou 3- 2mm, face sym, no drift, ffm sym, Objective Micro and Labs Date/Time Source Procedure Growth Status 02/05/17 22:45 Urine Catheterized Urine Urine Culture - Preliminary Gram Negative Hayden Resulted Problem Qualifiers (1) TIA (transient ischemic attack): Qualified Codes: G45.1 - Carotid artery syndrome (hemispheric) Lc Duke MD Feb 07, 2017 08:43
[2017-02-07] MEDS: SODIUM CHLORIDE 0.9% FLUSH 5 ML FLUSH IV FLUSH SCH (08:44)
[2017-02-07] MEDS: HEPARIN SODIUM - SQ 10,000 UNITS/ML VIAL SQ SCH (08:44)
[2017-02-07] MEDS: CLOPIDOGREL 75 MG TAB PO SCH (08:44)
[2017-02-07] MEDS: LOSARTAN 25 MG TAB PO SCH (08:44)
[2017-02-07] MEDS ORDERED: INFLUENZA VIRUS VACCINE (QUADRIVALENT) 0.5 ML SYR IM ONE (10:00)
[2017-02-07 11:07] VITALS: BP 140/80
--- NOTE | 2017-02-07 11:09 | HHI.PR ---
Subjective Remarks doing great no headache no weakness no blurring of vision Objective Vitals Vital Signs Date Time Temp Pulse Resp B/P (MAP) Pulse Ox O2 Delivery O2 Flow Rate FiO2 02/07/17 08:03 98.0 88 20 161/85 (110) 96 02/07/17 08:00 68 02/07/17 05:46 98.0 89 17 168/81 (110) 94 02/07/17 00:30 98.2 77 17 105/52 (69) 94 02/06/17 22:46 98.1 71 18 150/78 (102) 95 02/06/17 20:00 69 02/06/17 19:23 97.6 84 18 178/80 (112) 94 I/O 02/06/17 02/06/17 02/06/17 02/07/17 02/07/17 02/07/17 07:00 15:00 23:00 07:00 15:00 23:00 Intake Total 1090 ml Balance 1090 ml Intake Oral 240 ml IV Total 850 ml # Voids 6 3 # Bowel Movements 1 Result Diagram: 02/06/17 0645 02/06/17 0645 Imaging Last Impressions Neck Magnetic Resonance Angiography 02/06/17 0000 Signed Impressions: Service Date/Time: Monday, February 06, 2017 10:51 - CONCLUSION: 1. No evidence of hemodynamic significant lesion. There is 20-30%% on the right and 10-20%% on the left. Benigno Camacho MD Head Magnetic Resonance Angiography 02/06/17 0000 Signed Impressions: Service Date/Time: Monday, February 06, 2017 10:51 - CONCLUSION: 1. Intracranial atherosclerotic disease most prominent 60-70%% involving the proximal left middle cerebral artery. 2. 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 3. CT angiography of the cerebral brachial arch and brain is recommended for further evaluation if clinically indicated. Benigno Camacho MD Carotid Artery Ultrasound 02/06/17 0000 Signed Impressions: Service Date/Time: Monday, February 06, 2017 08:04 - CONCLUSION: 1. Nphk-rj-[id number] bilateral carotid plaque with resultant mild, less than 50%%, stenosis by powell scale criteria. 2. Antegrade vertebral artery flow bilaterally. Kulwant Allen MD Brain MRI 02/06/17 0000 Signed Impressions: Service Date/Time: Monday, February 06, 2017 10:51 - CONCLUSION: 1. Tiny acute nonhemorrhagic cortical infarction involving the left frontal lobe. 2. Chronic small vessel ischemic change. 3. Atrophy. Cornelio Quijano Jr., MD Head CT 02/05/171846 Signed Impressions: Service Date/Time: Sunday, February 05, 2017 19:11 - CONCLUSION: 1. No acute findings. 2. 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 Cornelio Messer MD Chest X-Ray 02/05/171846 Signed Impressions: Service Date/Time: Sunday, February 05, 2017 18:57 - CONCLUSION: The lungs are clear. Cornelio Messer MD Objective Remarks awake and alert, oriented x 3, speech clear and spontaenous anicteric no carotid bruit lungs clear regular rhythm abdomen soft, nontender extremities no edema Neuro exam- speech clear, a x ox 3 CN intact grossly no sensory deficits no motor deficits gait steady A/P Assessment and Plan - [id number] female with a past medical history significant for type 2 diabetes mellitus and hypertension presents 1 day history of right hand weakness /numbness. 1. Left MCA small infarction echo pending - good EF- will ff final results carotid no significant stenosis ASA + Plavix good Lipid profile - high HDL. continue on her statins good PT eval 2. Hypertension, elevated SBPs- better BP control Continue Cozaar 25 mg po daily xconitnue Amnloidpine 5 mg daily- BP now 140/80 d/w her OP ff up with PCP - ff BP 3. Diabetes mellitus- states good hypoglycemic awareness A1C 5.9 restart Metformin as OP in 48 hours- Saturday 4. Hypothyroidism TSH normal Continue home Synthroid 5. KARELY- pre renal--improved gentle hydration UA + but WBC +,only, - afevbrile lucy leucoysytosis no symptoms wiill not treat FEN heart healthy diet/ADA diet ff up with PCP, Dr. Lazaro as OP Activity as toelrated Meds as above- home meds new scripts- Amloidpine + Plavix Cuba Rosa MD Feb 07, 2017 11:09
[2017-02-07] MEDS ORDERED: ASPI325T33 PO (11:21)
[2017-02-07] MEDS ORDERED: PLAV75TA29 PO (11:21)
[2017-02-07] MEDS ORDERED: AMLO5 PO (11:21)
--- NOTE | 2017-02-07 14:47 | ECHRPT ---
Indication: CVA/TIA CONCLUSIONS The left ventricular systolic function is low normal with an estimated ejection fraction in the rang e of 50- 55%. Wall thickness is normal. Normal left ventricular size. Mild mitral valve regurgitation. Trace aortic valve regurgitation. BP: 198 / 89 HR: 68 Rhythm: Sinus MEASUREMENTS (Male / Female) Normal Values Technical Quality:Fair 2D ECHO LV Diastolic Diameter PLAX 4.9 cm 4.2 - 5.9 / 3.9 - 5.3 cm LV Systolic Diameter PLAX 3.9 cm IVS Diastolic Thickness 0.9 cm 0.6 - 1.0 / 0.6 - 0.9 cm LVPW Diastolic Thickness 0.9 cm 0.6 - 1.0 / 0.6 - 0.9 cm LV Relative Wall Thickness 0.4 LVOT Diameter 1.9 cm M-MODE Aortic Root Diameter MM 3.0 cm LA Systolic Diameter MM 3.0 cm LA Ao Ratio MM 1.0 AV Cusp Separation MM 1.8 cm DOPPLER AV Peak Velocity 167.0 cm/s AV Peak Gradient 11.2 mmHg AI Peak Velocity 533.5 cm/s AI Peak Gradient 113.8 mmHg AI Pressure Half Time 548.0 ms LVOT Peak Velocity 87.4 cm/s LVOT Peak Gradient 3.1 mmHg AV Area Cont Eq pk 1.5 cm MR Peak Velocity 357.0 cm/s MR Peak Gradient 51.0 mmHg Mitral E Point Velocity 70.6 cm/s Mitral A Point Velocity 89.8 cm/s Mitral E to A Ratio 0.8 LV E' Lateral Velocity 3.1 cm/s Mitral E to LV E' Lateral Ratio 22.6 LV E' Septal Velocity 2.9 cm/s Mitral E to LV E' Septal Ratio 24.2 PV Peak Velocity 99.1 cm/s PV Peak Gradient 3.9 mmHg FINDINGS LEFT VENTRICLE The left ventricular systolic function is low normal with an estimated ejection fraction in the rang e of 50- 55%. Wall thickness is normal. Normal left ventricular size. RIGHT VENTRICLE Normal right ventricular size and systolic function. LEFT ATRIUM The left atrial size is normal. RIGHT ATRIUM The right atrial size is normal. ATRIAL SEPTUM Normal atrial septal thickness without atrial level shunting by limited color doppler interrogation. AORTA The aortic root and proximal ascending aorta are normal in size on limited imaging. MITRAL VALVE Mild mitral valve regurgitation. AORTIC VALVE Trace aortic valve regurgitation. TRICUSPID VALVE Structurally normal tricuspid valve. No tricuspid valve stenosis or regurgitation. PULMONARY VALVE The pulmonary valve is not well visualized. VESSELS The inferior vena cava is normal in size. PERICARDIUM No pericardial effusion. Qasim Osorio MD (Electronically Signed) Final Date:07 February 2017 14:46
--- NOTE | 2017-02-08 08:51 | EKG ---
Date Performed: 02/05/2017 Time Performed: 21:20:36 PTAGE: 86 years EKG: Sinus rhythm LOW QRS VOLTAGE IN PRECORDIAL LEADS POSSIBLE RIGHT VENTRICULAR CONDUCTION DELAY LEFT ANTERIOR FASCIC ULAR BLOCK MODERATE VOLTAGE CRITERIA FOR LVH, CONSIDER NORMAL VARIANT ANTERIOR MYOCARDIAL INFARCTION ABNORMAL ECG PREVIOUS TRACING : 02/05/2017 19.21 DOCTOR: Abhishek Jorgensen Interpretating Date/Time 02/08/2017 08:49:03
--- NOTE | 2017-02-11 14:26 | HHI.DS ---
Discharge Summary Admission Date Feb 05, 2017 at 23:43 Discharge Date: Feb 07, 2017 Admitting Diagnosis TIA (1) Acute ischemic left MCA stroke ICD Code: I63.512 - Cerebral infarction due to unspecified occlusion or stenosis of left middle cerebral artery Status: Acute (2) HTN (hypertension) ICD Code: I10 - Essential (primary) hypertension Diagnosis: Secondary Status: Chronic Procedures none Brief History - From Admission 86-year-old female with a past medical history significant for hypertension and type 2 diabetes mellitus presents to the emergency department after having an episode of numbness and inability to use her right hand. The patient is a poor historian, is unclear on her medical problems and the medication she takes. She states that last night she went to reach for the remote she was unable to pick it up because she could not feel her hand or "make it work right." She states that she had symptoms again when she was eating dinner and she could not hold her fork. The patient's symptoms were resolved by the time she woke up this morning. She denies any changes in sensation. Has 5/5 cleaner greaser strength and full dexterity of her right hand. Imaging Last Impressions Neck Magnetic Resonance Angiography 02/06/17 0000 Signed Impressions: Service Date/Time: Monday, February 06, 2017 10:51 - CONCLUSION: 1. No evidence of hemodynamic significant lesion. There is 20-30%% on the right and 10-20%% on the left. Benigno Camacho MD Head Magnetic Resonance Angiography 02/06/17 0000 Signed Impressions: Service Date/Time: Monday, February 06, 2017 10:51 - CONCLUSION: 1. Intracranial atherosclerotic disease most prominent 60-70%% involving the proximal left middle cerebral artery. 2. 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 3. CT angiography of the cerebral brachial arch and brain is recommended for further evaluation if clinically indicated. Benigno Camacho MD Carotid Artery Ultrasound 02/06/17 0000 Signed Impressions: Service Date/Time: Monday, February 06, 2017 08:04 - CONCLUSION: 1. Vhwf-qz-hbhsegvq bilateral carotid plaque with resultant mild, less than 50%%, stenosis by powell scale criteria. 2. Antegrade vertebral artery flow bilaterally. Kulwant Allen MD Brain MRI 02/06/17 0000 Signed Impressions: Service Date/Time: Monday, February 06, 2017 10:51 - CONCLUSION: 1. Tiny acute nonhemorrhagic cortical infarction involving the left frontal lobe. 2. Chronic small vessel ischemic change. 3. Atrophy. Cornelio Quijano Jr., MD Head CT 02/05/171846 Signed Impressions: Service Date/Time: Sunday, February 05, 2017 19:11 - CONCLUSION: 1. No acute findings. 2. 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 Cornelio Messer MD Chest X-Ray 02/05/171846 Signed Impressions: Service Date/Time: Sunday, February 05, 2017 18:57 - CONCLUSION: The lungs are clear. Cornelio Messer MD PE at Discharge awake and alert, oriented x 3, speech clear and spontaenous anicteric no carotid bruit lungs clear regular rhythm abdomen soft, nontender extremities no edema Neuro exam- speech clear, a x ox 3 CN intact grossly no sensory deficits no motor deficits gait steady Pt update on day of discharge afebrile speech clear, no weakness no urinary symptoms Hospital Course 86-year-old female with a past medical history significant for type 2 diabetes mellitus and hypertension presents 1 day history of right hand weakness/ numbness. 1. Left MCA small infarction echo pending - good EF- will ff final results carotid no significant stenosis ASA + Plavix good Lipid profile - high HDL. continue on her statins good PT eval 2. Hypertension, elevated SBPs- better BP control Continue Cozaar 25 mg po daily xconitnue Amnloidpine 5 mg daily- BP now 140/80 d/w her OP ff up with PCP - ff BP 3. Diabetes mellitus- states good hypoglycemic awareness A1C 5.9 restart Metformin as OP in 48 hours- Saturday 4. Hypothyroidism TSH normal Continue home Synthroid 5. KARELY- pre renal--improved encourage po intake 6. UA + WBC +,only, - afebrile no leukoytosis no urinary symptoms wiil not treat. cultures no growth so far repeat UA as op through PCP FEN heart healthy diet/ADA diet ff up with PCP, Dr. Lazaro as OP Activity as toelrated Meds as above- home meds new scripts- Amloidpine + Plavix Pt Condition on Discharge: Stable Discharge Disposition: Discharge Home Discharge Time: <= 30 minutes Discharge Instructions DIET: Follow Instructions for: Heart Healthy Diet, Diabetic Diet Speech Therapy-Diet Recommends: Regular Activities you can perform: Weight Bearing as Murray Activities to Avoid: Prolonged Standing, Strenuous Activity Follow up Referrals: Neurology - 1 Week with Lc Duke MD PCP Follow-up - 3-5 Days with PCP New Medications: Amlodipine (Norvasc) 5 Mg Tab 5 MG PO DAILY for HTN for 30 Days, #30 TAB [address] (Aspirin EC) 325 Mg Tabdr 325 MG PO DAILY for CVA for 30 Days, #30 TAB 6 Refills Clopidogrel (Plavix) 75 Mg Tab 75 MG PO DAILY for CVA for 30 Days, #30 TAB 3 Refills Continued Medications: Levothyroxine (Levothyroxine) 50 Mcg Tab 50 MCG PO DAILY for Thyroid, #30 TAB 0 Refills Losartan (Losartan) 25 Mg Tab 25 MG PO DAILY for Blood Pressure Management, #30 TAB 0 Refills Metformin (Metformin) 500 Mg Tab 500 MG PO DAILY for Blood Sugar Management, #30 TAB 0 Refills With a meal Omeprazole (Omeprazole) 20 Mg Tab 20 MG PO DAILY, #30 TAB 0 Refills Oxybutynin (Ditropan) 5 Mg Tab 5 MG PO BID for Urinary Symptom Managemen, #60 TAB 0 Refills Pravastatin (Pravastatin) 10 Mg Tab 10 MG PO DAILY for Cholesterol Management, #30 TAB 0 Refills Discontinued Medications: Diltiazem ER 12 HR (Diltiazem ER 12 HR) 90 Mg Caper 90 MG PO DAILY, #60 CAP 0 Refills Meloxicam (Meloxicam) 7.5 Mg Tab 7.5 MG PO DAILY for Arthritis Pain, TAB 0 Refills Tramadol (Tramadol) 50 Mg Tab 50 MG PO Q12HR PRN for PAIN, TAB 0 Refills Cuba Rosa MD Feb 11, 2017 14:26
== END 2017-02-07 12:07 | disposition home or self-care (01) | DRG 65 ==
LOC: NEPC 18:17 → NEDA 22:21 → OBSVTOIN 23:43 → N05B 02-06 00:52
PROVIDERS: ADMIT Internal Medicine; ATTEND Internal Medicine
DX: I63.512 Cerebral infarction due to unspecified occlusion or stenosis of left middle cerebral artery (principal); G45.1 Carotid artery syndrome (hemispheric); N17.9 Acute kidney failure, unspecified; E11.9 Type 2 diabetes mellitus without complications; I10 Essential (primary) hypertension; M16.12 Unilateral primary osteoarthritis, left hip; Z79.82 Long term (current) use of aspirin; E03.9 Hypothyroidism, unspecified; K21.9 Gastro-esophageal reflux disease without esophagitis; Z79.899 Other long term (current) drug therapy; Z87.891 Personal history of nicotine dependence
CPT/HCPCS: 70450; 70544; 70548; 70551; 71010; 80048; 80053; 80061; 81001; 82550; 82607; 82948; 83036; 84443; 84484; 85025; 85610; 85730; 87077; 87086; 87186; 90686; 93005; 93306; 93880; A9579; J1644; J7030; Q2038

== ENCOUNTER 2018-05-03 14:59 | Observation (INO) ==
[2018-05-03] MEDS ORDERED: Dextrose 50% in Water 50 ML Vial IV.PUSH PRN (16:47)
[2018-05-03 17:10] LABS: Baso % (Auto) 0.4 % (0.0-2.0); Eos % (Auto) 0.4 % (0.0-4.0); Hematocrit 45.1 % (35.0-46.0); Hemoglobin 15.3 gm/dL (11.6-15.3); Lymph # (Auto) 1.5 th/mm3 (1.0-4.8); Lymph % (Auto) 13.8 % (9.0-44.0); Mean Corpuscular HGB Conc 33.9 % (32.0-36.0); Mean Corpuscular Hemoglobin 29.7 pg (27.0-34.0); Mean Corpuscular Volume 87.8 fL (80.0-100.0); Mean Platelet Volume 8.8 fL (7.0-11.0); Mono # (Auto) 0.6 th/mm3 (0.0-0.9); Mono % (Auto) 5.7 % (0.0-8.0); Neut # (Auto) 8.8 th/mm3 (1.8-7.7); Neut % (Auto) 79.7 % (16.0-70.0); Platelet Count 267 th/mm3 (150-450); Red Blood Count 5.13 mil/mm3 (4.00-5.30); Red Cell Distribution Width 14.6 % (11.6-17.2)
--- NOTE | 2018-05-03 17:26 | CT ---
EXAM DATE: 05/03/2018 5:17 PM EST AGE/SEX: 87 years / Female INDICATIONS: Altered mental status. CLINICAL DATA: This is the patient's initial encounter. Patient reports that signs and symptoms have been present for 1 day and indicates a pain score of 0/10. MEDICAL/SURGICAL HISTORY: Chronic obstructive pulmonary disease. Diabetes. None. RADIATION DOSE: 56.77 CTDI (mGy) COMPARISON: [facility] [place], 02/05/2017. . TECHNIQUE: CT of the head without contrast. Using automated exposure control and adjustment of the mA and/or kV according to patient size, radiation dose was kept as low as reasonably achievable to ob tain optimal diagnostic quality images. DICOM format image data is available electronically for revi ew and comparison. FINDINGS: Cerebrum: The ventricles are normal for age. Cortical atrophy. 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 No evidence of midline shift, mass lesion, hemorrhage or acute infarction. No extraaxial fluid collections are seen. Posterior Fossa: Brainstem is intact. Old lacunar infarcts in the left cerebellum. The 4th ventricl e is midline. The cerebellopontine angle is unremarkable. Extracranial: The visualized portion of the orbits is intact. Skull: The calvaria is intact. No evidence of skull fracture. CONCLUSION: 1. No acute intracranial abnormality. 2. 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 . . Electronically signed by: Sachin Sullivan MD Board Certified Radiologist 05/03/2018 5:25 PM EST
--- NOTE | 2018-05-03 17:29 | ED ---
HPI General Chief complaint: Diabetic Stated complaint: Weakness Complaint Time Seen by Provider: 05/03/18 16:47 Source: patient Mode of arrival: ambulatory Limitations: other (dementia) History of Present Illness HPI narrative: 87-year-old female presents with her family with note of having an episode where she fell yesterday and before that she was having a little bit of slurred speech but her glucometer was not working so there were not sure of her sugar was low. Again today she started to slur her speech and they finally got her machine to work and her sugar was 56 so they gave her some food and brought her here. They state that she is on pills for her diabetes. The patient denies any complaints but is a very poor historian and cannot recall that her sugar was low and her family states she has dementia. Related Data Home Medications Medication Instructions Recorded Confirmed atorvastatin 20 mg PO DAILY 05/03/18 05/03/18 clopidogrel [Plavix] 75 mg PO DAILY 05/03/18 05/03/18 diltiazem HCl 90 mg PO DAILY 05/03/18 05/03/18 glimepiride 2 mg PO QAM 05/03/18 05/03/18 levothyroxine 50 mcg PO DAILY 05/03/18 05/03/18 losartan 50 mg PO BID 05/03/18 05/03/18 meloxicam [Mobic] 7.5 mg PO DAILY PRN 05/03/18 05/03/18 memantine [Namenda] 5 mg PO DAILY 05/03/18 05/03/18 metformin 500 mg PO DAILY 05/03/18 05/03/18 omeprazole 20 mg PO DAILY 05/03/18 05/03/18 oxybutynin chloride 5 mg PO QAM 05/03/18 05/03/18 oxybutynin chloride 10 mg PO QPM 05/03/18 05/03/18 Allergies Allergy/AdvReac Type Severity Reaction Status Date / Time No Known Allergies Allergy Unverified 02/05/17 18:38 Review of Systems ROS: all other systems reviewed are negative [facility] Medical History Medical History COPD (chronic obstructive pulmonary disease) (Acute) Chronic kidney disease (Acute) Diabetes (Acute) Hypertension (Acute) Social History Social History Substance History: No History of Abuse Smoking Status: Former smoker Tobacco Type: Cigarettes How Often Do You Have a Drink Containing Alcohol: Monthly or less Recent Travel in [facility] within the Last 8 Weeks: No Recent Out of Country Travel within the Last 8 Weeks: No Immunization History Tetanus Immunization: Unsure Exam Narrative Exam Narrative: GENERAL: 87 y/o female in no apparent distress SKIN: Focused skin assessment warm/dry. Ecchymosis noted to left hand HEAD: Atraumatic. Normocephalic. EYES: Pupils equal and round. No scleral icterus. No injection or drainage. ENT: No nasal bleeding or discharge. Mucous membranes pink and moist. NECK: Trachea midline. No JVD. No pain in midline over C-spine CARDIOVASCULAR: Regular rate and rhythm. No murmur appreciated. RESPIRATORY: No accessory muscle use. Clear to auscultation. Breath sounds equal bilaterally at apices. GASTROINTESTINAL: Abdomen soft, non-tender, nondistended MUSCULOSKELETAL: No obvious deformities. No clubbing. No cyanosis. No edema. Pain over left hand, no pain with range of motion over other joints NEUROLOGICAL: Awake. Motor grossly within normal limits. Normal speech. Course Reevaluation(s) Reevaluation #1: Patient's family updated and agreed to admission, given Rocephin for UTI Consultations Consultation #1: dr henderson agrees to admit Initial Documented Vital Signs Temperature 98.1 F 05/03/18 15:01 Pulse Rate 84 05/03/18 15:01 Respiratory Rate 20 05/03/18 15:01 Blood Pressure 221/100 H 05/03/18 15:01 Pulse Oximetry 98 05/03/18 15:01 Last Documented Vital Signs Temperature 98.1 F 05/03/18 15:01 Pulse Rate 74 05/03/18 15:07 Respiratory Rate 20 05/03/18 15:07 Blood Pressure 203/91 H 05/03/18 15:07 Pulse Oximetry 98 05/03/18 15:07 Medical Decision Making [facility] Narrative Medical decision making narrative: Patient with episodes of hypoglycemia and fall, patient is on diabetic pills and no insulin. Will check workup and she will need admission for further care she is likely having recurrent episodes of this Medical Screen Exam Complete: Yes Emergency Medical Condition: Yes Differential Diagnosis Differential Diagnosis: UTI, cardiac, renal failure Lab Data Result diagrams: 05/03/18 16:55 02/16/19 16:55 Lab Results 05/03/18 05/03/18 05/03/18 Range/Units 16:55 16:55 17:30 WBC 11.0 (4.0-11.0) th/mm3 RBC 5.13 (4.00-5.30) mil/mm3 Hgb 15.3 (11.6-15.3) gm/dL Hct 45.1 (35.0-46.0) % MCV 87.8 (80.0-100.0) fL MCH 29.7 (27.0-34.0) pg MCHC 33.9 (32.0-36.0) % RDW 14.6 (11.6-17.2) % Plt Count 267 (150-450) th/mm3 MPV 8.8 (7.0-11.0) fL Neut % (Auto) 79.7 H (16.0-70.0) % Lymph % (Auto) 13.8 (9.0-44.0) % Union % (Auto) 5.7 (0.0-8.0) % Eos % (Auto) 0.4 (0.0-4.0) % Baso % (Auto) 0.4 (0.0-2.0) % Neut # (Auto) 8.8 H (1.8-7.7) th/mm3 Lymph # (Auto) 1.5 (1.0-4.8) th/mm3 Union # (Auto) 0.6 (0.0-0.9) th/mm3 Eos # (Auto) 0.0 (0.0-0.4) th/mm3 Baso # (Auto) 0.0 (0.0-0.2) th/mm3 WBC Differential . Differential Comment Auto diff final Sodium 140 (136-145) meq/L Potassium 4.1 (3.5-5.1) meq/L Chloride 107 (98-107) meq/L Carbon Dioxide 27.1 (21.0-32.0) meq/L Anion Gap 6 (5-15) meq/L BUN 21 H (7-18) mg/dL Creatinine 1.13 H (0.50-1.00) mg/dL Estimated GFR 46 L (>89) mL/min Random Glucose 136 H (74-106) mg/dL Calcium 8.7 (8.5-10.1) mg/dL Magnesium 2.1 (1.5-2.5) mg/dL Total Bilirubin 0.6 (0.2-1.0) mg/dL AST 19 (15-37) U/L ALT 16 (10-53) U/L Alkaline Phosphatase 66 (45-117) U/L Total Creatine Kinase 190 (26-192) U/L CK-MB (CK-2) 4.1 H (0.5-3.6) ng/mL Troponin I 0.07 H (0.02-0.05) ng/mL Total Protein 7.3 (6.4-8.2) g/dL Albumin 3.7 (3.4-5.0) g/dL Urine Color Straw (Yellw/Straw) Urine Clarity Clear (Clear) Urine pH 5.0 (5.0-8.5) Ur Specific Dewey 1.003 (1.002-1.035) Urine Protein Negative (Neg-Trace) mg/dL Urine Glucose (UA) Negative (Negative) mg/dL Urine Ketones Negative (Negative) mg/dL Urine Occult Blood Small H (Negative) Urine Nitrate Positive H (Negative) Urine Bilirubin Negative (Negative) Urine Urobilinogen Less than 2 (Less than 2) mg/dL Ur Leukocyte Esterase Small H (Negative) Urine RBC Less than 1 (0-3) /hpf Urine WBC 5 (0-5) /hpf Ur Squamous Epith Cells 1 (0-5) /hpf Urine Bacteria Many H (None) /hpf Urine Mucus Few H (Occasional) /lpf Micro UA Comment Culture indicated Ur Microscopic Review Not Reportable Urine Culture Comments Culture indicated Imaging Data Radiologist's impression: Head CT 05/03/18 16:55 CONCLUSION: 1. No acute intracranial abnormality. 2. 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 . . Hand X-Ray 05/03/18 17:29 CONCLUSION: 1. Degenerative changes. 2. Degenerative changes and minimal subluxation of the first carpal metacarpal joint. 3. No fracture Discharge Plan Discharge Disposition Patient Disposition: ED Admit(ED Internal Use Only) Discharge Order Discharge Orders: ED Use Only Admit Order (Routine); Ordered 05/03/18 Ordered By: Michelle Alvarez Discharge Details Diagnosis: UTI (urinary tract infection), Hypoglycemia, Fall Physicians Team ED Provider: Michelle Alvarez Primary Care Provider: Shayna Corral Attending Provider: Maci Henderson Discharge Interventions Interventions: Vital Signs Last Done: 05/03/18 15:07 Status ED Status: Admitted Observation Patient
[2018-05-03 17:34] LABS: Albumin 3.7 g/dL (3.4-5.0); Anion Gap 6 meq/L (5-15); Aspartate Aminotransferase 19 U/L (15-37); Blood Urea Nitrogen 21 mg/dL (7-18); Calcium 8.7 mg/dL (8.5-10.1); Carbon Dioxide 27.1 meq/L (21.0-32.0); Chloride 107 meq/L (98-107); Glomerular Filtration Rate 46 mL/min (>89); Glucose,Random 136 mg/dL (74-106); Magnesium 2.1 mg/dL (1.5-2.5); Potassium 4.1 meq/L (3.5-5.1); Sodium 140 meq/L (136-145)
[2018-05-03 17:38] LABS: Alanine Aminotransferase 16 U/L (10-53); Alkaline Phosphatase 66 U/L (45-117); Creatine Kinase 190 U/L (26-192); Total Protein 7.3 g/dL (6.4-8.2); Troponin I 0.07 ng/mL (0.02-0.05)
--- NOTE | 2018-05-03 17:49 | XR ---
EXAM DATE: 05/03/2018 5:42 PM EST AGE/SEX: 87 years / Female INDICATIONS: Pain due to fall yesterday. CLINICAL DATA: This is the patient's initial encounter. Patient reports that signs and symptoms have been present for 2 days and indicates a pain score of 6/10. MEDICAL/SURGICAL HISTORY: . Chronic obstructive pulmonary disease. Diabetes type 2. Appendecto my. COMPARISON: No prior exams available for comparison. FINDINGS: Views of the left hand demonstrates degenerative changes throughout the interphalangeal joints and fi rst carpal metacarpal joint. Minimal subluxation of the first carpal metacarpal joint. No fracture. No radiopaque foreign bodies seen. CONCLUSION: 1. Degenerative changes. 2. Degenerative changes and minimal subluxation of the first carpal metacarpal joint. 3. No fracture Electronically signed by: Sachin Sullivan MD Board Certified Radiologist 05/03/2018 5:47 PM EST
[2018-05-03 17:51] LABS: Creatine Kinase MB 4.1 ng/mL (0.5-3.6)
[2018-05-03] MEDS ORDERED: Aspirin 325 MG Tablet PO ONE (17:52)
[2018-05-03] MEDS ORDERED: Bisacodyl 10 MG Supp RECTAL PRN (17:58)
[2018-05-03] MEDS ORDERED: Acetaminophen 325 MG Tablet PO PRN (17:58)
[2018-05-03 18:05] LABS: Bacteria,Urine Many /hpf; Bilirubin,Urine Negative (Negative); Clarity,Urine Clear (Clear); Color,Urine Straw (Yellw/Straw); Glucose,Urine (UA) Negative (Negative); Leukocyte Esterase,Urine Small (Negative); Mucus,Urine Few /lpf (Occasional); Nitrite,Urine Positive (Negative); Specific Gravity,Urine 1.003 (1.002-1.035); Squamous Epithelial Cell,Urine 1 /hpf (0-5)
[2018-05-03] MEDS ORDERED: hydrALAZINE 10 MG Tablet PO PRN (18:05)
--- NOTE | 2018-05-03 18:13 | P.HPIM ---
History of Present Illness Primary Care Physician: [facility] Chief Complaint: weakness History of Present Illness: 87-year-old female presents with her family with note of having an episode where she fell yesterday and before that she was having a little bit of slurred speech but her glucometer was not working so there were not sure of her sugar was low. Again today she started to slur her speech and they finally got her machine to work and her sugar was 56 so they gave her some food and brought her here. They state that she is on pills for her diabetes. The patient denies any complaints but is a very poor historian and cannot recall that her sugar was low and her family states she has dementia. Review of Systems Review of Systems: all other systems reviewed are negative [facility] Medical History Medical History COPD (chronic obstructive pulmonary disease) (Acute) Chronic kidney disease (Acute) Diabetes (Acute) Hypertension (Acute) Social History Social History Substance History: No History of Abuse Smoking Status: Former smoker Tobacco Type: Cigarettes How Often Do You Have a Drink Containing Alcohol: Monthly or less Recent Travel in [facility] within the Last 8 Weeks: No Recent Out of Country Travel within the Last 8 Weeks: No Immunization History Tetanus Immunization: Unsure Medications and Allergies Allergies Allergy/AdvReac Type Severity Reaction Status Date / Time No Known Allergies Allergy Unverified 02/05/17 18:38 Home Medications Medication Instructions Recorded Confirmed Type atorvastatin 20 mg PO DAILY 05/03/18 05/03/18 History clopidogrel [Plavix] 75 mg PO DAILY 05/03/18 05/03/18 History diltiazem HCl 90 mg PO DAILY 05/03/18 05/03/18 History glimepiride 2 mg PO QAM 05/03/18 05/03/18 History levothyroxine 50 mcg PO DAILY 05/03/18 05/03/18 History losartan 50 mg PO BID 05/03/18 05/03/18 History meloxicam [Mobic] 7.5 mg PO DAILY PRN 05/03/18 05/03/18 History memantine [Namenda] 5 mg PO DAILY 05/03/18 05/03/18 History metformin 500 mg PO DAILY 05/03/18 05/03/18 History omeprazole 20 mg PO DAILY 05/03/18 05/03/18 History oxybutynin chloride 5 mg PO QAM 05/03/18 05/03/18 History oxybutynin chloride 10 mg PO QPM 05/03/18 05/03/18 History Active Medications: Active Medications Acetaminophen (Tylenol) 650 mg PO Q4H PRN PRN Reason: Temp > 100.4 Al Hydroxide/Mg Hydroxide (Milk Of Magnesia Liq) 30 ml PO Q12H PRN PRN Reason: Mild Constipation Atorvastatin Calcium (Lipitor) 20 mg PO DAILY [facility] Bisacodyl (Dulcolax Supp) 10 mg RECTAL DAILY PRN PRN Reason: SEVERE CONSITIPATION Clopidogrel Bisulfate (Plavix) 75 mg PO DAILY [facility] Dextrose (D50w Vial) 50 ml IV.PUSH UNSCH PRN PRN Reason: PER HYPOGLYCEMIA PROTOCOL Enoxaparin Sodium (Lovenox Inj) 40 mg SQ Q24H [facility] Lactulose (Lactulose Liq) 30 ml PO DAILY PRN PRN Reason: SEVERE CONSITIPATION Levothyroxine Sodium (Synthroid) 50 mcg PO DAILY [facility] Losartan Potassium (Cozaar) 50 mg PO BID [facility] Memantine (Namenda) 5 mg PO DAILY [facility] Non-Formulary Medication (Diltiazem Hcl [Diltiazem Hcl]) 90 mg PO DAILY [facility] Non-Formulary Medication (Omeprazole [Omeprazole]) 20 mg PO DAILY [facility] Ondansetron HCl (Zofran Inj) 4 mg IV.PUSH Q6H PRN PRN Reason: NAUSEA OR VOMITING Oxybutynin Chloride (Ditropan) 10 mg PO QPM [facility] Oxybutynin Chloride (Ditropan) 5 mg PO QAM [facility] Senna/Docusate Sodium (Britney-Colace) 1 tab PO BID [facility] Sennosides (Senokot) 17.2 mg PO Q12H PRN PRN Reason: Moderate Constipation Sodium Chloride (Ns Flush) 2 ml IV.FLUSH PRN PRN PRN Reason: FLUSH AFTER USING IV ACCESS Sodium Chloride (Ns Flush) 2 ml IV.FLUSH PRN PRN PRN Reason: FLUSH AFTER USING IV ACCESS Sodium Chloride (Ns Flush) 2 ml IV.FLUSH BID [facility] Physical Exam Vital signs: Vital Signs 05/03/18 15:01 05/03/18 15:07 Temperature 98.1 F Pulse Rate 84 74 Respiratory Rate 20 20 Blood Pressure 221/100 H 203/91 H Pulse Oximetry 98 98 Intake & Output 05/02/18 05/03/18 05/03/18 18:59 06:59 18:59 Weight 56.699 kg Narrative: GENERAL: Pleasantly confused elderly female, appears in nad. SKIN: Warm and dry. HEAD: Atraumatic. Normocephalic. EYES: Pupils equal and round. No scleral icterus. No injection or drainage. ENT: No nasal bleeding or discharge. Mucous membranes pink and moist. NECK: Trachea midline. No JVD. CARDIOVASCULAR: Regular rate and rhythm. RESPIRATORY: No accessory muscle use. Clear to auscultation. Breath sounds equal bilaterally. GASTROINTESTINAL: Abdomen soft, non-tender, nondistended. Hepatic and splenic margins not palpable. MUSCULOSKELETAL: Extremities without clubbing, cyanosis, or edema. No obvious deformities. NEUROLOGICAL: Awake and alert. No obvious cranial nerve deficits. Motor grossly within normal limits. Five out of 5 muscle strength in the arms and legs. Normal speech. PSYCHIATRIC: Appropriate mood and affect; insight and judgment normal. Results Labs CBC & Chem 7: 05/03/18 16:55 05/03/18 16:[address] 05/03/18 16:55 CONCLUSION: 1. No acute intracranial abnormality. 2. 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 . . Hand X-Ray 05/03/18 17:29 CONCLUSION: 1. Degenerative changes. 2. Degenerative changes and minimal subluxation of the first carpal metacarpal joint. 3. No fracture Caprini VTE Risk Assessment Caprini VTE Risk Assessment: Moderate/High Risk (score >= 2) Caprini Risk Assessment Model: Point Value = 1 Point Value = 2 Point Value = 3 Point Value = 5 Age 41-60 Minor surgery BMI > 25 kg/m2 Swollen legs Varicose veins or History of unexplained or recurrent spontaneous Oral contraceptives or hormone replacement Sepsis (< 1 month) Serious lung disease, including pneumonia (< 1 month) Abnormal pulmonary function Acute myocardial infarction Congestive heart failure (< 1 month) History of inflammatory bowel disease Medical patient at bed rest Age 61-74 Arthroscopic surgery Major open surgery (> 45 min) Laparoscopic surgery (> 45 min) Malignancy Confined to bed (> 72 hours) Immobilizing plaster cast Central venous access Age >= 75 History of VTE Family history of VTE Factor V Leiden Prothrombin [id number] Lupus anticoagulant Anticardiolipin antibodies Elevated serum homocysteine Heparin-induced thrombocytopenia Other congenital or acquired thrombophilia Stroke (< 1 month) Elective arthroplasty Hip, pelvis, or leg fracture Acute spinal cord injury (< 1 month) Prophylaxis Regimen: Total Risk Factor Score Risk Level Prophylaxis Regimen 0-1 Low Early ambulation 2 Moderate Order ONE of the following: *Sequential Compression Device (SCD) *Heparin 5000 units SQ BID 3-4 Higher Order ONE of the following medications: *Heparin 5000 units SQ TID *Enoxaparin/Lovenox 40 mg SQ daily (WT < 150 kg, CrCl > 30 mL/min) *Enoxaparin/Lovenox 30 mg SQ daily (WT < 150 kg, CrCl > 10-29 mL/min) *Enoxaparin/Lovenox 30 mg SQ BID (WT < 150 kg, CrCl > 30 mL/min) AND/OR *Sequential Compression Device (SCD) 5 or more Highest Order ONE of the following medications: *Heparin 5000 units SQ TID (Preferred with Epidurals) *Enoxaparin/Lovenox 40 mg SQ daily (WT < 150 kg, CrCl > 30 mL/min) *Enoxaparin/Lovenox 30 mg SQ daily (WT < 150 kg, CrCl > 10-29 mL/min) *Enoxaparin/Lovenox 30 mg SQ BID (WT < 150 kg, CrCl > 30 mL/min) AND *Sequential Compression Device (SCD) Assessment and Plan Plan Pleasantly confused 87-year-old female with past medical history of diabetes, hypertension, hyperlipidemia who presented to the emergency room brought by the family with complaints of generalized weakness Hypoglycemia and fall Diabetes mellitus type 2 Accelerated malignant hypertension with altered mental status and KARELY on admission. IV hydralazine restart home medications KARELY mildly elevated creatinine. Control blood pressure. Monitor kidney function closely. Check UA Hyperlipidemia Dementia, worsening will do cognitive eval Patient was found with blood sugar of 56, accuchecks Start on gentle IV fluid with glucose monitor blood sugar closely IV hydralazine 1 dose, hydralazine as needed 10 mg every 6 hours as needed systolic blood pressure high, restart home medications Monitor blood pressure and adjust medications as needed Monitor kidney function, check UA Neurochecks DVT prophylaxis Lovenox Discussed Condition With: Patient, nurse, ED physician
[2018-05-03] MEDS ORDERED: hydrALAZINE HCl Inj 20 MG/ML Vial IV.PUSH ONE (19:00)
[2018-05-03] MEDS: Enoxaparin Inj 40 MG/0.4 ML Syringe SQ SCH (19:12)
[2018-05-03] MEDS: Senna/Docusate Sodium 8.6/50 MG Tablet PO SCH (21:51)
[2018-05-04] MEDS: Levothyroxine 50 MCG Tablet PO SCH (06:26)
[2018-05-04] MEDS: Pantoprazole Sodium 20 MG DR Tablet PO SCH (09:05)
[2018-05-04] MEDS: Senna/Docusate Sodium 8.6/50 MG Tablet PO SCH ×2 (09:05→20:11)
[2018-05-04] MEDS: DILTIAZEM 90 MG PO SCH (09:05)
[2018-05-04 09:26] LABS: Baso # (Auto) 0.1 th/mm3 (0.0-0.2); Baso % (Auto) 0.9 % (0.0-2.0); Eos # (Auto) 0.1 th/mm3 (0.0-0.4); Eos % (Auto) 1.6 % (0.0-4.0); Hematocrit 46.1 % (35.0-46.0); Hemoglobin 15.5 gm/dL (11.6-15.3); Lymph # (Auto) 1.7 th/mm3 (1.0-4.8); Lymph % (Auto) 19.9 % (9.0-44.0); Mean Corpuscular HGB Conc 33.5 % (32.0-36.0); Mean Corpuscular Hemoglobin 29.5 pg (27.0-34.0); Mean Corpuscular Volume 88.1 fL (80.0-100.0); Mono # (Auto) 0.8 th/mm3 (0.0-0.9); Mono % (Auto) 8.7 % (0.0-8.0); Neut % (Auto) 68.9 % (16.0-70.0); Platelet Count 264 th/mm3 (150-450); Red Blood Count 5.23 mil/mm3 (4.00-5.30); Red Cell Distribution Width 14.6 % (11.6-17.2); White Blood Count 8.7 th/mm3 (4.0-11.0)
[2018-05-04 09:48] LABS: Calcium 8.5 mg/dL (8.5-10.1); Carbon Dioxide 27.9 meq/L (21.0-32.0); Potassium 3.9 meq/L (3.5-5.1)
[2018-05-04] MEDS ORDERED: Dextrose 50% in Water 50 ML Vial IV.PUSH PRN (14:26)
--- NOTE | 2018-05-04 14:31 | P.PNIM ---
Physical Exam Vital signs: Vital Signs 05/03/18 15:01 05/03/18 15:07 05/03/18 16:47 Temperature 98.1 F Pulse Rate 84 74 Respiratory Rate 20 20 Blood Pressure 221/100 H 203/91 H Pulse Oximetry 98 98 95 05/03/18 17:58 05/03/18 19:05 05/03/18 19:14 Temperature Pulse Rate 76 75 Respiratory Rate 18 18 Blood Pressure 194/86 H 205/88 H Pulse Oximetry 96 96 97 05/03/18 19:21 05/03/18 19:34 05/03/18 19:51 Temperature Pulse Rate 83 82 88 Respiratory Rate 18 18 18 Blood Pressure 171/77 H 151/67 H 144/65 H Pulse Oximetry 97 97 05/04/18 00:00 05/04/18 03:59 05/04/18 07:40 Temperature 98.2 F 98.4 F 98.0 F Pulse Rate 86 79 78 Respiratory Rate 16 12 18 Blood Pressure 117/65 118/56 L 138/70 Pulse Oximetry 93 L 92 L 94 L 05/04/18 12:15 Temperature 98.1 F Pulse Rate 81 Respiratory Rate 18 Blood Pressure 144/67 H Pulse Oximetry 95 Intake & Output 05/03/18 05/04/18 05/04/18 18:59 06:59 18:59 Intake Total 580 / 580 Balance 580 / 580 Weight 56.699 kg 56.699 kg Intake: IV 100 / 100 Rocephin Inj 1,000 MG In NS Inj 100 / 100 100 ML @ 200 mls/hr IV.SIG ONCE ONE Rx#:[id number] Oral 480 / 480 Other: # Voids 2 1 Date of Last Bowel Movement 05/02/18 05/02/18 Weight On Admission 56.699 kg Narrative: GENERAL: Pleasantly confused elderly female, appears in nad. CARDIOVASCULAR: Regular rate and rhythm. RESPIRATORY: No accessory muscle use. Clear to auscultation. Breath sounds equal bilaterally. GASTROINTESTINAL: Abdomen soft, non-tender, nondistended. Hepatic and splenic margins not palpable. MUSCULOSKELETAL: Extremities without clubbing, cyanosis, or edema. No obvious deformities. NEUROLOGICAL: Awake and alert. No obvious cranial nerve deficits. Motor grossly within normal limits. Five out of 5 muscle strength in the arms and legs. Normal speech. PSYCHIATRIC: Appropriate mood and affect; insight and judgment normal. Results Labs CBC & Chem 7: 05/04/18 08:15 05/04/18 08:15 Labs: Microbiology 05/03/18 17:30 Clean Catch Urine Urine Culture - Preliminary gram negative rods Imaging Imaging: Impressions Head CT 05/03/18 16:55 CONCLUSION: 1. No acute intracranial abnormality. 2. 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 . . Hand X-Ray 05/03/18 17:29 CONCLUSION: 1. Degenerative changes. 2. Degenerative changes and minimal subluxation of the first carpal metacarpal joint. 3. No fracture Assessment and Plan Plan Pleasantly confused 87-year-old female with past medical history of diabetes, hypertension, hyperlipidemia who presented to the emergency room brought by the family with complaints of generalized weakness Hypoglycemia and fall Diabetes mellitus type 2 Accelerated malignant hypertension with altered mental status and KARELY on admission. IV hydralazine restart home medications KARELY mildly elevated creatinine. Control blood pressure. Monitor kidney function closely. Check UA suggestive of UTI, start rpcephin IV Hyperlipidemia Dementia, cognitive eval Patient was found with blood sugar of 56, accuchecks. on hold home meds metformin and glimepiride. Family says she is taking meds and due to dementia she is forgetful and takes more meds than prescribed and forgets to eat at times. Start on gentle IV fluid with glucose monitor blood sugar closely IV hydralazine 1 dose, hydralazine as needed 10 mg every 6 hours as needed systolic blood pressure high, restart home medications Monitor blood pressure and adjust medications as needed Monitor kidney function Neurochecks Start rocephin for poss UTI , urin eculture pending DVT prophylaxis Lovenox Discussed with the patient. Poss DC tomorrow Progress Note: Quality VTE Deep Vein Thrombosis/Pulmonary Embolism Present on Admission: No
[2018-05-04] MEDS: Insulin NovoLOG Aspart Correctional Sugar Inj SQ SCH ×2 (17:49→20:18)
[2018-05-04] MEDS: Enoxaparin Inj 40 MG/0.4 ML Syringe SQ SCH (20:07)
[2018-05-05 04:19] VITALS: RESP 16
[2018-05-05] MEDS: Levothyroxine 50 MCG Tablet PO SCH (05:51)
[2018-05-05] MEDS: Insulin NovoLOG Aspart Correctional Sugar Inj SQ SCH ×2 (08:10→13:18)
[2018-05-05] MEDS: Pantoprazole Sodium 20 MG DR Tablet PO SCH (09:26)
[2018-05-05] MEDS: Senna/Docusate Sodium 8.6/50 MG Tablet PO SCH (09:26)
[2018-05-05] MEDS: DILTIAZEM 90 MG PO SCH (09:26)
[2018-05-05 12:23] VITALS: BP 155/84; PULSE 84; TEMP 97.9; O2SAT 90
--- NOTE | 2018-05-05 14:33 | P.DS ---
DS: Providers Date of admission: 05/03/18 18:06 Primary care physician: Shayna Insurance Consults: 05/04/18 09:28 HUB Only Consult Order Routine Consulting Provider: Shayna Corral Brief History from admission: 87-year-old female presents with her family with note of having an episode where she fell yesterday and before that she was having a little bit of slurred speech but her glucometer was not working so there were not sure of her sugar was low. Again today she started to slur her speech and they finally got her machine to work and her sugar was 56 so they gave her some food and brought her here. They state that she is on pills for her diabetes. The patient denies any complaints but is a very poor historian and cannot recall that her sugar was low and her family states she has dementia. DS: Summary Pleasantly confused 87-year-old female with past medical history of diabetes, hypertension, hyperlipidemia who presented to the emergency room brought by the family with complaints of generalized weakness and fall, noted with hypoglycemia, accelerated hypertension with mild AK I and worsening mental stage status//confusion. Imaging reassurinfg no fracture. CT head with changes consistent with age. Also patient with UTI started on Rocephin, to have ciprofloxacin as outpatient treatment for UTI with E. coli pansensitive. Eating well blood sugar is better controlled and no episodes of hypoglycemia. Recommend diabetic diet for now and on hold diabetic medications. Patient to follow-up with PCP and restart meds as needed. To have a log for blood sugar and presented to the primary care doctor. Blood pressure improved. The patient with is with dementia, per family she is forgetful and forgets to eat sometimes and also forgets taking her medications and at times she is might take double dose of medications. The family is very supportive, granddaughter lives with her. We will have social research assistant for evaluation. Discharged home in stable condition to follow-up with PCP and consultants as outpatient. Time Spent with Patient Total time spent providing and/or coordinating discharge services: > 30 minutes Quality: VTE Deep Vein Thrombosis/Pulmonary Embolism Present on Admission: No Exam Narrative Exam Narrative: GENERAL: Pleasantly confused elderly female, appears in nad. CARDIOVASCULAR: Regular rate and rhythm. RESPIRATORY: No accessory muscle use. Clear to auscultation. Breath sounds equal bilaterally. GASTROINTESTINAL: Abdomen soft, non-tender, nondistended. Hepatic and splenic margins not palpable. MUSCULOSKELETAL: Extremities without clubbing, cyanosis, or edema. No obvious deformities. NEUROLOGICAL: Awake and alert. No obvious cranial nerve deficits. Motor grossly within normal limits. Five out of 5 muscle strength in the arms and legs. Normal speech. Results Labs on day of discharge: Labs from last 24 hours 05/05/18 05/05/18 05/04/18 12:43 08:10 20:10 POC Glucose 175 H 125 H 205 H 05/04/18 17:48 POC Glucose 149 H Impressions ITS Impressions Head CT 05/03/18 16:55 CONCLUSION: 1. No acute intracranial abnormality. 2. 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 . . Hand X-Ray 05/03/18 17:29 CONCLUSION: 1. Degenerative changes. 2. Degenerative changes and minimal subluxation of the first carpal metacarpal joint. 3. No fracture Discharge Plan Discharge Disposition Patient Disposition: W/Home Health Service Discharge Condition Condition: Stable Discharge Order Discharge Orders: Discharge Order (Routine); Ordered 05/05/18 Ordered By: Maci Apodaca Discharge Details Anticipated Discharge Date: 05/05/18 Discharge Comment: DC when arrangements are done and SBP< 160 Physicians Team Primary Care Provider: Shayna Corral Attending Provider: Maci Apodaca Other Providers: Shayna Corral Rxs /Orders / Referrals /Forms Prescriptions: New ciprofloxacin HCl 250 mg tablet 250 mg PO Q12H Qty: 10 RF: 0 Continue losartan 50 mg Tablet 50 mg PO BID RF: 0 atorvastatin 20 mg Tablet 20 mg PO DAILY RF: 0 clopidogrel [Plavix] 75 mg Tablet 75 mg PO DAILY RF: 0 meloxicam [Mobic] 7.5 mg Tablet 7.5 mg PO DAILY PRN (Reason: Arthritic Pain) RF: 0 levothyroxine 50 mcg Tablet 50 mcg PO DAILY RF: 0 diltiazem HCl 90 mg Capsule,Extended Release 12 Hr 90 mg PO DAILY RF: 0 oxybutynin chloride 5 mg Tablet 10 mg PO QPM RF: 0 oxybutynin chloride 5 mg Tablet 5 mg PO QAM RF: 0 memantine [Namenda] 5 mg Tablet 5 mg PO DAILY RF: 0 omeprazole 20 mg Tablet,Delayed Release (Dr/Ec) 20 mg PO DAILY RF: 0 Discontinued metformin 500 mg Tablet 500 mg PO DAILY RF: 0 glimepiride 2 mg Tablet 2 mg PO QAM RF: 0 Referrals: Shayna Corral [Primary Care Provider] - See Instructions ( Please call the physician's office to book the appointment to be seen within [2-3 days with your PCP ].) Discharge Instructions Patient Printed Instructions: Urinary Tract Infection in Women (ED), Heart Healthy Diet (GEN), Dementia (GEN), Hypoglycemia in a Person with Diabetes (DC) , Calorie Counting Diet (GEN), Chronic Hypertension (DC), DASH Eating Plan (DC) , Hypertension (GEN) Additional Instructions: Your Health Problems: UTI & HYPOGLYCEMIA Goals to Promote Your Health: * To prevent worsening of your condition * To maintain your health at the optimal level Directions to Meet Your Goals: * Take your medications as prescribed * Follow your dietary instruction * Follow activity as directed * Keep your appointments as scheduled * Take your immunizations and boosters as scheduled * If your symptoms worsen call your PCP * If no PCP go to Urgent Care or Emergency Room Smoking is dangerous to your health. Avoid second hand smoke. You may reach the 24-hour crisis hotline for domestic abuse at . Post Discharge Care Plan Care Plan Goals: Your Health Problems: UTI & HYPOGLYCEMIA Goals to Promote Your Health: * To prevent worsening of your condition * To maintain your health at the optimal level Directions to Meet Your Goals: * Take your medications as prescribed * Follow your dietary instruction * Follow activity as directed * Keep your appointments as scheduled * Take your immunizations and boosters as scheduled * If your symptoms worsen call your PCP * If no PCP go to Urgent Care or Emergency Room Smoking is dangerous to your health. Avoid second hand smoke. You may reach the 24-hour crisis hotline for domestic abuse at . Status ED Status: Left Department
--- NOTE | 2018-05-05 15:41 | P.DCO ---
Home Health Nursing Order: Medical education, Signs/symptoms of disease process, Diabetic education , Medication education-adverse effect and Nursing assessment with vital signs Chemical Lab Technician Order: To evaluate: Living conditions/environment and Support services Case Management Consult Case Management Consult-Home Health: Yes I have seen patient Ludy Jesus on 05/05/18. My clinical findings support the need for the requested home health care services because: Limited mobility due to disease progression, Medication compliance is questionable, Impaired cognition/judgement and High risk of falls I certify that my clinical findings support that this patient is homebound because: Impaired cognitive ability/safety and Unsteady gait/balance
== END 2018-05-05 16:33 | disposition home health service (06) ==
LOC: NEPC 14:59 → NEDA 14:59 → NEPHCDU 20:35
PROVIDERS: ADMIT Hospitalist; ATTEND Hospitalist
DX: J44.9 Chronic obstructive pulmonary disease, unspecified; R53.1 Weakness; R41.82 Altered mental status, unspecified; Z79.899 Other long term (current) drug therapy; I12.9 Hypertensive chronic kidney disease with stage 1 through stage 4 chronic kidney disease, or unspecified chronic kidney disease; Z79.02 Long term (current) use of antithrombotics/antiplatelets; E78.5 Hyperlipidemia, unspecified; F03.90 Unspecified dementia, unspecified severity, without behavioral disturbance, psychotic disturbance, mood disturbance, and anxiety; E11.22 Type 2 diabetes mellitus with diabetic chronic kidney disease; E11.649 Type 2 diabetes mellitus with hypoglycemia without coma; R79.89 Other specified abnormal findings of blood chemistry; N17.9 Acute kidney failure, unspecified; N39.0 Urinary tract infection, site not specified; Z87.891 Personal history of nicotine dependence; N18.9 Chronic kidney disease, unspecified
CPT/HCPCS: 70450; 73130; 80048; 80053; 81001; 82550; 82552; 82948; 82962; 83735; 84484; 85025; 87077; 87086; 87186; 96125; 96365; 96372; 96375; 97127; 97161; 97532; 99285; G0378; G0515; G8987; G8988; G9168; G9169; J0360; J0696; J1650; J1815